=== PATIENT | male | born 1950 | race Caucasian/White ===

== ENCOUNTER 2018-06-11 10:27 | Inpatient (IN) ==
[2018-06-11] MEDS ORDERED: Iohexol 350 MG/ML 100 ML Vial (for Cath Lab) IVCONTRAST ONE (10:28)
[2018-06-11 11:24] LABS: Baso % (Auto) 0.2 % (0.0-2.0); Hematocrit 43.6 % (39.0-51.0); Hemoglobin 14.6 gm/dL (13.0-17.0); Lymph # (Auto) 0.8 th/mm3 (1.0-4.8); Lymph % (Auto) 6.3 % (9.0-44.0); Mean Corpuscular HGB Conc 33.4 % (32.0-36.0); Mean Corpuscular Volume 92.7 fL (80.0-100.0); Mean Platelet Volume 8.8 fL (7.0-11.0); Mono # (Auto) 0.3 th/mm3 (0.0-0.9); Mono % (Auto) 2.6 % (0.0-8.0); Neut % (Auto) 90.9 % (16.0-70.0); Platelet Count 286 th/mm3 (150-450); Red Blood Count 4.71 mil/mm3 (4.50-5.90); Red Cell Distribution Width 14.3 % (11.6-17.2); White Blood Count 12.1 th/mm3 (4.0-11.0)
[2018-06-11 11:35] LABS: Calcium 8.7 mg/dL (8.5-10.1); Carbon Dioxide 25.8 meq/L (21.0-32.0); Potassium 4.5 meq/L (3.5-5.1)
[2018-06-11 11:36] LABS: Activated Partial Thrombo Time 31.6 sec (23.4-31.7); INR 1.3 Ratio
[2018-06-11] MEDS ORDERED: Heparin/NS PF Inj 1,000 ML ONE (12:45)
[2018-06-11] MEDS ORDERED: fentaNYL Citrate Inj 100 MCG/2 ML Ampul ONE (12:45)
[2018-06-11] MEDS ORDERED: Lidocaine PF 1% Inj 30 ML Vial ONE (12:45)
[2018-06-11] MEDS: Sod Chloride 0.9% Inj 1,000 ML IV.SIG SCH (13:20)
--- NOTE | 2018-06-11 14:06 | CATHPROC ---
Copytele HIS Report Study Information Study Number Admission Scheduled Start Study Start [id number] Jun 11 2018 10:27AM 06/11/2018 Jun 11 2018 12:18PM [facility] Cardiac Catheterization Admit Source Facility Department Other [facility] - Sales Engineer Physician and Clinical Staff Initial MD Beckford, Elena Flight Controls Engineer Hermelinda Jarquin,BHAVIN Other cathlab, cathlab Recorder Debbie Mancia ,RT(R) Aster Lainez,RT(R) (BS) Procedures Performed Procedure Location (Site) Vessel Name Angiogram LV LV Ventricle Coronary Angiograms LCA Left Coronary Coronary Angiograms RCA Right Coronary L Heart Cath Equipment Time Diabetologist Description Size Mfg Part Number Used/Scraped TRANSDUCER, TRUWAVE [id number] 12:19 [employer] [address] * Used W/STOCKCOCK *[id number] INTRODUCER SET, 12:19 [employer] FR 5 [id number] *[id number] Used MICROPUNCTURE STIFF [phone] *[id number] 538-420 *[id number] [id number] *[id number] 12:19 [employer] BLANKET,WARM AIR CCL * Used *[id number] 12:19 [employer] PACK, CCL CUSTOM * Used *[id number] 12:19 [employer] PACER PEN, SKIN DUAL W/ RULER * Used *[id number] 12:19 [employer] WIRE, 3MMJ .035 180CM 180CM Used *[id number] PROBE COVER, STERILE [id number] 12:19 [employer] MEDICAL * Used ULTRASOUND W/ GEL *[id number] 12:19 NAMIC MANIFOLD, 4 PORT * Used *[id number] 12:19 [employer] OMNIPAQUE, 350 MG, 150ML 150ML [id number] Used 13:00 [employer] OMNIPAQUE, 350 MG, 50ML 50ML [id number] Used [id number] 12:19 [employer] SHEATH, FR4 TERUMO (10CM) FR 4 Used *[id number] History: Current Medications Medication Dosage/Unit Route Frequency Last Date/Time Taken Statins (any) Beta Bee ASA Coumadin History: Allergies Allergy Reaction Iodinated Contrast- Oral and IV Shortness of Breath Dye History: Risk Factors Family History of Hypertension Dyslipidemia Previous PR Previous Heart Failure Premature CAD Yes Yes Yes No No Prior Valve Prior PCI Prior CABG Surgery No No No Cerebrovascular Peripheral Artery Chronic Lung On Dialysis Diabetes Disease Disease Disease No No No Yes No History: Other Current Smoker No Labs Hgb (g/dl) Hct (%) WBC (l/cumm) Platelets (thousands) 11.60-17.00 35.00-51.00 4.00-11.00 150.00-450.00 14.6 43.6 12.1 286 Glucose (mg/dl) BUN (mg/dl) Creatinine (mg/dl) BUN:Creatinine (1:x) 74.00-106.00 7.00-18.00 0.50-1.30 10.00-20.00 131 15 1.0 15 Na (meq/l) K (meq/l) 136.00-145.00 3.50-5.10 142 4.5 INR (PTT:PT) 0.90-1.10 1.3 CPK-MB (ng/ML) 0.50-3.60 Not Drawn Medication Medication Total Dose (Bolus/Oral) Medication Total Dosage/Unit 1% XYLOCAINE 15 mL FENTANYL 100 mcg VERSED 2 mg Medications (Bolus/Oral) Medication Time Given Dosage/Unit Administered By Reason VERSED 06/11/2018 1:25:20 PM 2 mg Hermelinda Jarquin 2 mg VERSED given in lab by Hermelinda Jarquin, BHAVIN via Peripheral IV. Ordered by Elena Beckford. FENTANYL 06/11/2018 1:26:34 PM 50 mcg Hermelinda Jarquin 50 mcg FENTANYL given in lab by Hermelinda Jarquin, BHAVIN in Right Forearm via Peripheral IV. Ordered by Elena Bell. 1% XYLOCAINE 06/11/2018 1:28:36 PM 15 mL Elena Beckford 15 mL 1% XYLOCAINE given in lab by Elena Beckford in Right Groin via Subcutaneous. Ordered by Elena Zapata. FENTANYL 06/11/2018 1:31:04 PM 50 mcg Hermelinda Jarquin 50 mcg FENTANYL given in lab by Hermelinda Jarquin, BHAVIN in Left Forearm via Peripheral IV. Ordered by Elena Cross. Medication (Drip) Medication Time Given Dosage/Unit Concentration/Unit Diluent (ml) Solution 06/11/2018 12:37:55 IV Solutions 50 mL (IV) NaCl .9 PM Patient arrived on IV Solutions via Peripheral IV. Pump/Drip Flow using NaCl .9. Initial Case Assessment Cardiovascular HR NIBP Chest Pain 82 134/82 0 Edema Present Skin color Skin None Normal Warm Dry Circulatory - Right Pulses Dorsalis Pedis Femoral 3 3 Scale (0,1,2,3,4,d) Circulatory - Left Pulses Dorsalis Pedis Femoral 3 3 Scale (0,1,2,3,4,d) Neurological State Oriented to time-place- Alert Moves all extremities person Respiration - General Respiration Rate SpO2 (%) (B/min) 16 97 Final Case Assessment Cardiovascular HR NIBP Chest Pain 100 127/69 0 Edema Present Skin color Skin None Normal Warm Dry Circulatory - Right Pulses Dorsalis Pedis Femoral 3 3 Scale (0,1,2,3,4,d) Circulatory - Left Pulses Dorsalis Pedis Femoral 3 3 Scale (0,1,2,3,4,d) Neurological State Oriented to time-place- Alert Moves all extremities person Respiration - General Respiration Rate SpO2 (%) (B/min) 16 97 Chronological Log Time Study Chronological Log 12:36:33 Patient arrived via Bed. Premedicated for contrast allergy. 12:36:34 Patient Name, D.O.B, / Armband Verified By R.N. 12:37:41 Consent signed by the physician and the patient and verified by the Sales Engineer staff. 12:37:45 Pre-op and post- op instructions given; patient acknowledges understanding of instructions. 12:37:47 Verbal Stimulation=2 Physical Stimulation=2 Airway=2 Respiration=2 TOTAL=8. (0=absent, 1=li mited, 2=present) 12:37:49 Patient has been NPO for More than 6Hrs. 12:37:50 Skin Breakdown- none per patient 12:37:52 Patient Warmer Placed on the Table. 12:37:53 Casie Prominences Protected 12:37:54 A # 20 IV was noted in the Forearm (left). Grade = 0 12:37:55 Patient arrived on IV Solutions via Peripheral IV. Pump/Drip Flow using NaCl .9. 12:37:55 History and physical on the chart or being dictated. Assessment: Initial Case, HR=82 BPM, QPOR=937/82 mmhg, Chest Pain=0, Edema=None, Color=Normal, Skin = Warm, Dry Right Pulses: Joni Ped=3, Femoral=3 12:37:57 Left Pulses: Joni Ped=3, Femoral=3 Neurological: State=Alert, Ox3, ARVIZU Respiration: Resp=16 B/min, SpO2=97 % Vitals capture started with the following parameters, Patient=Adult, Interval=5 min, Initial Pr rkhyav=003 mmHg, 12:42:29 Deflation Rate=5 mmHg, Cuff placed on Left Arm 12:42:44 Reference ECG taken 12:43:10 HR=82 bpm, PPSW=526/82 mmhg, SpO2=98.0 %, Resp=18 B/min, Pain=0, Libby=10, Shepherd=2 12:48:03 HR=82 bpm, DHOF=648/84 mmhg, SpO2=98.0 %, Resp=15 B/min, Pain=0, Libby=10, Shepherd=2 12:52:13 Bilateral groins prepped with 2% chlorhexidine, and draped after a 3 minute waiting time. 12:52:42 MD paged 12:53:04 HR=82 bpm, XOHK=158/83 mmhg, SpO2=98.0 %, Resp=9 B/min, Pain=0, Libby=10, Shepherd=2 12:57:06 Pressure channel 1 zeroed. 12:58:03 HR=83 bpm, BVCW=200/79 mmhg, SpO2=97.0 %, Resp=9 B/min 13:03:02 HR=82 bpm, GLAW=775/81 mmhg, SpO2=97.0 %, Resp=9 B/min, Pain=0, Libby=10, Shepherd=2 13:08:03 HR=81 bpm, UACN=263/78 mmhg, SpO2=97.0 %, Resp=8 B/min, Pain=0, Libby=10, Shepherd=2 13:13:06 HR=83 bpm, AOGK=079/73 mmhg, SpO2=96.0 %, Resp=1 B/min, Pain=0, Libby=10, Shepherd=2 13:14:51 MD responded 13:18:05 HR=84 bpm, ILOQ=395/79 mmhg, SpO2=97.0 %, Resp=0 B/min, Pain=0, Libby=10, Shepherd=2 13::38 MD arrived. 13:23:04 HR=86 bpm, TLUB=608/82 mmhg, SpO2=96.0 %, Resp=18 B/min, Pain=0, Libby=10, Shepherd=2 13:25:20 2 mg VERSED given in lab by Hermelinda Jarquin, BHAVIN via Peripheral IV. Ordered by Caridad Beckford. 50 mcg FENTANYL given in lab by Hermelinda Jarquin, BHAVIN in Right Forearm via Peripheral IV. Ordered by Analy, 13::34 Humkalin. Time Out. Correct patient, correct procedure, correct physician, labs, allergies, and equipment verified with solar lab technician ::38 team present. Fire risk assesment completed (see hard stop sheet for coding). Time Out Conc urred by MD and individual staff in procedure. 13:28:07 HR=86 bpm, FUJF=971/73 mmhg, SpO2=93.0 %, Resp=4 B/min, Pain=0, Libby=10, Shepherd=2 13::34 Case Start 15 mL 1% XYLOCAINE given in lab by Elena Beckford in Right Groin via Subcutaneous. Ordered by Analy, 13:28:36 Humayun. 13:30:19 Access site was Right Femoral Artery. A INTRODUCER SET, MICROPUNCTURE STIFF FR 5 was advanced into the Fem Art (right) using the Perc utaneous :30:29 technique. A SHEATH, FR4 TERUMO (10CM) FR 4 was exchanged in the Fem Art (right). This was necessary in or richie to :34 accomodate a larger catheter. 50 mcg FENTANYL given in lab by Hermelinda Jarquin, BHAVIN in Left Forearm via Peripheral IV. Ordered by Analy, 13:31:04 Humsuzetteun. A JL 4.0 INFINITI CATHETER FR 4 was advanced over a wire. OMNIPAQUE, 350 MG, 150ML 150ML was us ed for ::34 injections. 13:32:54 The LCA was injected and visualized at various angles. OMNIPAQUE, 350 MG, 150ML 150ML used . Recorded Pressure: Ao, HR=75, Condition=Condition 1 13:33:03 (Aorta) Ao 109/69/88 13:33:04 HR=86 bpm, XTPF=088/78 mmhg, SpO2=96.0 %, Resp=13 B/min, Pain=0, Libby=10, Shepherd=2 13:38:05 HR=91 bpm, SEAK=433/75 mmhg, SpO2=93.0 %, Resp=17 B/min, Pain=0, Libby=10, Shepherd=2 After removing the current catheter a 3DRC INFINITI CATHETER FR 4 was advanced over a WIRE, 3MM J .035 180CM 13:38:09 180CM. 13:39:48 The RCA was injected and visualized at various angles. OMNIPAQUE, 350 MG, 150ML 150ML used . 13:40:56 Catheter was removed A PIGTAIL ANG. INFINITI CATHETER FR 4 was advanced over a wire. OMNIPAQUE, 350 MG, 150ML 150ML was used 13:41:05 for injections. 13:43:06 HR=78 bpm, VDYY=724/69 mmhg, SpO2=94.0 %, Resp=16 B/min 13:43:29 The LV was injected at 8 cc/sec for a total of 32. OMNIPAQUE, 350 MG, 150ML 150ML used. Recorded Pressure: LV, IR=214, Condition=Condition 1 13:43:55 (Left Ventricle) LV 110/8/19 Recorded Pressure: LV, Ao, UH=684, Condition=Condition 1 13:44:00 (Left Ventricle) LV 108/7/18, (Aorta) Ao 107/59/84 13:44:20 Catheter was removed 13:44:32 Case End (Physician broke scrub) Assessment: Final Case, VE=555 BPM, TMRT=574/69 mmhg, Chest Pain=0, Edema=None, Color=Normal, Skin = Warm, Dry Right Pulses: Joni Ped=3, Femoral=3 13:44:41 Left Pulses: Joni Ped=3, Femoral=3 Neurological: State=Alert, Ox3, ARVIZU Respiration: Resp=16 B/min, SpO2=97 % 13:45:09 Catheter(s) removed without difficulty 13:45:14 Sheath removed; pressure applied to access site. 13:45:19 Sterile dressing applied to site 13:45:19 No case complications noted. 13:45:22 Cine recording checked. 13:45:23 Bedside Report will be given. 13:45:28 A Left Heart Cath was performed. 13:48:05 HR=86 bpm, YLKK=526/83 mmhg, SpO2=97.0 %, Resp=22 B/min, Pain=0, Libby=10, Shepherd=2 13:53:06 HR=84 bpm, ONSJ=106/81 mmhg, SpO2=95.0 %, Resp=13 B/min 13:58:05 HR=87 bpm, RQWZ=143/77 mmhg, SpO2=97.0 %, Resp=24 B/min, Pain=0, Libby=10, Shepherd=2 14:03:06 HR=87 bpm, YSBX=833/82 mmhg, Resp=12 B/min 14:04:03 Patient moved to stretcher End Study - Contrast Media Used In Study Contrast Total Opened (mL) Total Used (mL) Total Wasted (mL) Omnipaque 65 65 0 End Study - Maximum Contrast Load Max Contrast Load (mL) 369.1 End Study - Radiation Exposure Fluoro Time (minutes) 2.2 End Study - Sheaths Sheaths Pulled By Sheath Hold Time (min) Aster Jolly End Study - Patient Disposition Complications Transferred To Interventional Outcome No Regular Bed No attempt made
--- NOTE | 2018-06-11 15:27 | MP ---
cc: Elena Beckford MD, Souheil MD DATE OF OPERATION: 06/11/2018 INDICATIONS FOR PROCEDURE: Increasing angina. CONSENT: Fully informed consent was obtained for our procedure. The risks of , bleeding, myocardial infarction, perforation, aspiration, foreseen office and reviewed. The patient understood and accepted the risks. BRIEF HISTORY: This is a very pleasant 68-year-old gentleman who presents with increasing angina. He was referred for further evaluation and treatment and was recommended to have a heart catheterization. PROCEDURE: The patient was draped and prepped in usual manner. Right femoral artery was entered using a micropuncture technique via the 4-Turkish sheath. Left and right coronary catheters were used to evaluate the left and right coronaries. Pigtail catheter left ventricle. Multiple angiographic views were carried out. At the end of the catheterization procedure, all catheters and sheaths were removed. Manual pressure applied until hemostasis was achieved and the patient returned to his room in stable condition. FINDINGS: 1. Hemodynamics: The aortic pressure was 130/80_ with a mean of 84. The left ventricular systolic pressure was 108 with a LVEDP pressure of 18. There was no evidence of significant gradient on pullback across the LV outflow tract. LEFT VENTRICULOGRAM: The overall left ventricular ejection fraction was 60%. There was no evidence of significant mitral regurgitation. No thrombus. CORONARY ARTERIES: The left main had an ostial stenosis of 75%. This was an eccentric stenosis. Left main was a medium size vessel. The LAD was a large vessel, in the distal LAD there were 375-90% stenoses. The left main itself had a 75-90% stenosis. The circumflex vessel was a large vessel with a large first obtuse marginal branch that bifurcated early and bifurcated once again in the terminal branches of the main vessel. The second obtuse marginal branch was small. The circumflex artery had a long 75% stenosis proximal to the small second obtuse marginal branch. The diagonal branch was large, with evidence of diffuse 60-75% stenosis proximally. The right coronary artery was a large vessel, it was diffusely diseased throughout its length of about 25-50%. He gave a small posterior descending artery. The first posterolateral branch was large, with an ostial stenosis of about 60%. The second posterolateral branch was medium and some mild diffuse disease. CONCLUSION: Significant left main with 3-vessel coronary artery disease, normal left ventricular function. PLAN: Consider bypass surgery to the LAD, diagonal branch circumflex, OM and first posterolateral branch. MD KELLY Long/diane , 01:57 PM , 02:08 PM PEDRITO
[2018-06-11] MEDS ORDERED: Dextrose 50% in Water 50 ML Vial IV.PUSH PRN (16:08)
[2018-06-11] MEDS ORDERED: Chlorhexidine 4% Topical 120 APPLIC/120 ML Bottle TOPICAL SCH (16:15)
--- NOTE | 2018-06-11 16:25 | P.PNCV ---
- Note Subjective/Hospital Course: pt seen and evaluated, full consult to follow sts data discussed with pt RISK SCORES Procedure: Isolated CAB CALCULATE Risk of Mortality: 0.702% Renal Failure: 0.430% Permanent Stroke: 0.628% Prolonged Ventilation: 2.398% DSW Infection: 0.099% Reoperation: 1.670% Morbidity or Mortality: 4.330% Short Length of Stay: 70.080% Long Length of Stay: 1.531% Objective: Vital Signs - 24 hr 06/11/18 11:13 Temperature 97.9 F Pulse Rate 73 Respiratory Rate 18 Blood Pressure 138/80 Pulse Oximetry 99 Labs: Laboratory Results - last 12 hr 06/11/18 06/11/18 06/11/18 11:00 11:00 11:00 WBC 12.1 H RBC 4.71 Hgb 14.6 Hct 43.6 MCV 92.7 MCH 31.0 MCHC 33.4 RDW 14.3 Plt Count 286 MPV 8.8 Neut % (Auto) 90.9 H Lymph % (Auto) 6.3 L [place]ings[place] % (Auto) 2.6 Eos % (Auto) 0.0 Baso % (Auto) 0.2 Neut # (Auto) 11.0 H Lymph # (Auto) 0.8 L [place] # (Auto) 0.3 Eos # (Auto) 0.0 Baso # (Auto) 0.0 WBC Differential . Differential Comment Auto diff final PT 13.0 H INR 1.3 APTT 31.6 Sodium 142 Potassium 4.5 Chloride 109 H Carbon Dioxide 25.8 Anion Gap 7 BUN 15 Creatinine 1.00 Estimated GFR 74 L Random Glucose 131 H Calcium 8.7 Result Diagrams: 06/11/18 11:00 06/11/18 11:00
[2018-06-11] MEDS ORDERED: Sodium Chloride 0.9% Irr Bot 500 ML, ceFAZolin Inj 500 MG IRRIGATION SCH ×2 (17:00)
[2018-06-11] MEDS ORDERED: ceFAZolin 2 GM Premix Inj 2 GM/50 ML PIGGYBACK IV.SIG SCH (17:00)
[2018-06-11] MEDS ORDERED: Insulin Regular (For Infusion) 100 UNIT in Sodium Chlor 0.9% Inj 99 ML IV.CONT PRN (17:00)
[2018-06-11] MEDS ORDERED: Sodium Chlor 0.9% Inj 77.5 ML, Papaverine Inj 60 MG, Nitroglycerin Inj 100 MCG, dilTIAZ... IRRIGATION SCH ×3 (17:00)
--- NOTE | 2018-06-11 18:04 | MB ---
cc: Sammie Jefferson MD DATE: 06/11/2018 HISTORY OF PRESENT ILLNESS: A 68-year-old male patient of Dr. Vik Reeves, Dr. Beckford, who presented to his office at the beginning of the month for complaint of chest pain that he has been having off and on with exertion over the past couple of months. Scale was 4/10, more like a pressure sensation associated with some shortness of breath. Normally very active, but has been somewhat limited because of this ongoing intermittent chest discomfort. He underwent echocardiogram at Dr. Beckford's office, which showed an ejection fraction of 56%, some mild mitral regurgitation, mild tricuspid regurgitation. He underwent elective cardiac catheterization today, which showed an ejection fraction of 60%. The left main was 75% ostial lesion, the mid distal LAD 75%, the diagonal 75%. The circ was 95. The RCA 50%. We were consulted to evaluate for coronary artery bypass graft x4. 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 They were unable to find the source of the cause of the pulmonary emboli. Therefore, they kept him on continuous treatment. He has been off his Coumadin for his catheterization today. Also, history of benign prostatic hypertrophy, history of premature atrial contraction, history of a pulmonary nodule. The patient apparently had recent followup CT scan at [facility], which we can obtain. Also, history of depression. PAST SURGICAL HISTORY: Include knee surgery, tonsillectomy, hernia surgery. ALLERGIES: INCLUDE IVP DYE. HOME MEDICATIONS: Include: 1. Coumadin 5 daily. 2. Flomax. 3. Trazodone. 4. Tramadol. 5. Singulair. 6. Albuterol inhaler. 7. Advair Diskus. 8. Omeprazole. 9. Aspirin. 10. Metoprolol. 11. Atorvastatin. 12. Nitroglycerin as needed. FAMILY HISTORY: Positive for heart disease in father and his brother. Mother from diagnosis of cancer and a stroke. SOCIAL HISTORY: Nonsmoker. Rare alcohol. . REVIEW OF SYSTEMS: GENERAL: No night sweats, fever, heat and cold intolerance. SKIN: No psoriasis, itching or hives. HEENT: No blurred vision, hearing loss. RESPIRATORY: Positive for recent shortness of breath with exertion. CARDIOVASCULAR: As above in the HPI. GASTROINTESTINAL: No diarrhea or vomiting. GENITOURINARY: No burning, frequency, urgency. CENTRAL NERVOUS SYSTEM: No history of TIA, CVA or seizure disorder. ENDOCRINOLOGY: No diabetes or hypothyroidism. PHYSICAL EXAMINATION: VITAL SIGNS: Blood pressure 138/80, heart rate is 70, temperature max 97.9. GENERAL: Awake, alert, in no acute distress. HEENT: Head is normocephalic, atraumatic. Pupils equal and reactive. Oral mucosa pink, moist. NECK: Supple. No JVD. HEART: Sounds S1, S2. Regular rate and rhythm with occasional ectopy. LUNGS: Lung sounds are clear to auscultation. No wheezes, rales or rhonchi. ABDOMEN: Soft, nontender. No masses or organomegaly. EXTREMITIES: No cyanosis, clubbing, or edema. LABORATORY DATA: Shows hemoglobin 14, hematocrit of 43, white cell count of 12.1, platelet count of 286. INR 1.3. Sodium 142, potassium 4.5, BUN of 15, creatinine 1.0. IMPRESSION: Again, this 68-year-old male with left main and multivessel coronary artery disease, ejection fraction 60%. The cardiac catheterization films have been reviewed by Dr. Sammie Jefferson. Procedures, alternatives, and risks discussed with the patient. He is agreeable to proceed. We will continue to hold his Coumadin, can resume postsurgery. At this time, we will schedule him for 06/13/2018, for surgery. The patient will have complete further workup. His STS risk score is 0.7%. Dictated by Radha Wolf APRN Patient seen and examined, chart and angiograms reviewed on the 2017 and the findings discussed in detail with the patient and his family. Therapeutic options available including CABG was offered. I agree with Dr. Beckford that he will maximally benefit from bypass to his LAD, diagonal, OM and RPDA distributions. The LAD is very diffusely diseased and there is a potential that it may not be bypassable. The risks, complications including but not limited to bleeding, infection, stroke, myocardial injury and , and benefits of the surgical procedure were discussed in details and all questions answered. He understands the provided information and agrees to proceed with the planned operation. We will plan on proceeding with the surgical procedure as describe above on Wednesday. In the meantime, we will obtain carotid duplex imaging and lower extremity vein mapping. Thank you for allowing me to participate in the care of this patient. MD MADI Spaulding/jose , 04:31 PM , 04:40 PM PEDRITO
[2018-06-11 19:08] LABS: Bilirubin,Urine Negative (Negative); Clarity,Urine Clear (Clear); Color,Urine Yellow (Yellw/Straw); Glucose,Urine (UA) 50 mg/dL (Negative); Leukocyte Esterase,Urine Negative (Negative); Mucus,Urine Few /lpf (Occasional); Nitrite,Urine Negative (Negative)
--- NOTE | 2018-06-11 21:20 | XR ---
EXAM DATE: 06/11/2018 9:08 PM EST AGE/SEX: 68 years / Male INDICATIONS: Evaluate for pneumonia, pneumothorax, or communicable disease. Pre op cardiac surgery. CLINICAL DATA: This is the patient's initial encounter. Patient reports that signs and symptoms have been present for 1 day and indicates a pain score of 0/10. MEDICAL/SURGICAL HISTORY: None. None. COMPARISON: POI, XR CHEST PA AND LAT, 04/25/2018. . FINDINGS: PA and lateral views of the chest demonstrate the lungs to be symmetrically aerated without evidence of mass, infiltrate or effusion. The cardiomediastinal contours are unremarkable. Osseous structures are intact. CONCLUSION: Negative for acute process Electronically signed by: Garfield Muse MD 06/11/2018 9:19 PM EST
--- NOTE | 2018-06-11 22:08 | US ---
EXAM DATE: 06/11/2018 9:57 PM EST AGE/SEX: 68 years / Male INDICATIONS: Preop cardiac surgery. CLINICAL DATA: This is the patient's initial encounter. Patient reports that signs and symptoms have been present for 1 day and indicates a pain score of 0/10. MEDICAL/SURGICAL HISTORY: . BPH. Chest pressure. Hiatal hernia. Premature atrial contraction. P ulmonary nodule. Pulmonary embolism. . Cardiac cath. COMPARISON: No prior exams available for comparison. VELOCITY PARAMETERS: ICA/CCA Ratio: Right 0.8 , Left 0.9 ICA: Right 85 cm/sec, Left 84 cm/sec CCA: Right 106 cm/sec, Left 95 cm/sec ECA: Right 98 cm/sec, Left 90 cm/sec Vertebral: Right 70 cm/sec antegrade, Left 58 cm/sec antegrade FINDINGS: Right Carotid: No significant plaque is visualized.The waveforms are within normal limits. Left Carotid: No significant plaque is visualized. The waveforms are within normal limits. Other: None. CONCLUSION: Negative for hemodynamically significant stenosis Electronically signed by: Garfield Muse MD 06/11/2018 10:07 PM EST
[2018-06-12 06:06] LABS: INR 1.2 Ratio
[2018-06-12 06:16] LABS: Albumin 3.3 g/dL (3.4-5.0); Anion Gap 4 meq/L (5-15); Aspartate Aminotransferase 15 U/L (15-37); Blood Urea Nitrogen 17 mg/dL (7-18); Calcium 8.5 mg/dL (8.5-10.1); Carbon Dioxide 28.6 meq/L (21.0-32.0); Chloride 107 meq/L (98-107); Glucose,Random 103 mg/dL (74-106); Potassium 3.9 meq/L (3.5-5.1); Sodium 140 meq/L (136-145)
[2018-06-12 06:18] LABS: Alanine Aminotransferase 31 U/L (12-78); Alkaline Phosphatase 87 U/L (45-117); Glomerular Filtration Rate 79 mL/min (>89); Total Protein 6.3 g/dL (6.4-8.2)
--- NOTE | 2018-06-12 06:35 | ECG ---
Date Performed: 06/11/2018 Time Performed: 10:48:34 PTAGE: 68 years EKG: Sinus rhythm . Leftward axis Inferior T wave changes are nonspecific Borderline ECG NO PREVIOUS TRACING DOCTOR: Anuj Roldan Interpretating Date/Time 06/12/2018 06:33:54
--- NOTE | 2018-06-12 08:54 | US ---
EXAM DATE: 06/12/2018 8:49 AM EST AGE/SEX: 68 years / Male INDICATIONS: Preop cardiac surgery. CLINICAL DATA: This is the patient's initial encounter. Patient reports that signs and symptoms have been present for 1 day and indicates a pain score of 0/10. MEDICAL/SURGICAL HISTORY: . BPH. Chest pressure. Hiatal hernia. Premature atrial contraction. P ulmonary nodule. Pulmonary embolism. . Cardiac cath. COMPARISON: No prior exams available for comparison. TECHNIQUE: Venous ultrasound of both lower extremities was performed from the inguinal ligament to t he proximal calf. Real-time, color Doppler and spectral tracing, compression and augmentation techni ques were used. FINDINGS: Right Leg: Normal compression of the deep venous system from the inguinal region to the proximal josie f. No echogenic clot is seen. Normal response of the venous system to augmentation and respiration. Left Leg: Normal compression of the deep venous system from the inguinal region to the proximal calf . No echogenic clot is seen. Normal response of the venous system to augmentation and respiration. Other: None. CONCLUSION: The study is negative for bilateral lower extremity deep venous thrombosis. Electronically signed by: Thomas Oconnell MD 06/12/2018 8:53 AM EST
--- NOTE | 2018-06-12 08:56 | US ---
EXAM DATE: 06/12/2018 8:53 AM EST AGE/SEX: 68 years / Male INDICATIONS: Preop cardiac surgery. CLINICAL DATA: This is the patient's initial encounter. Patient reports that signs and symptoms have been present for 1 day and indicates a pain score of 0/10. MEDICAL/SURGICAL HISTORY: None. BPH. Chest pressure. Hiatal hernia. Premature atrial contractio n. Pulmonary nodule. Pulmonary embolism. . Cardiac cath. COMPARISON: . MEASUREMENTS: RIGHT THIGH: Proximal:__5 mm Mid:__ 3 mm Distal:__4 mm LEFT THIGH: Proximal:__7 mm Mid:__3 mm Distal:__4 mm RIGHT CALF: Proximal:__3 mm Mid:__3 mm Distal:__3 mm LEFT CALF: Proximal:__4 mm Mid:__4 mm Distal:__3 mm FINDINGS: The venous system of the lower extremities are patent by color Doppler imaging. Measurements of the leg veins (in mm) are listed above. CONCLUSION: Patent greater saphenous veins bilaterally as above. Electronically signed by: Thomas Oconnell MD 06/12/2018 8:54 AM EST
[2018-06-12 11:02] LABS: Hemoglobin A1c 5.8 % (4.3-6.0)
[2018-06-12] MEDS: Sod Chloride 0.9% Inj 1,000 ML IV.SIG SCH (12:18)
[2018-06-12] MEDS: Acetaminophen 325 MG Tablet PO PRN ×2 (14:13→20:49)
--- NOTE | 2018-06-12 15:23 | P.PNCV ---
- Note Subjective/Hospital Course: A 68-year-old male patient of Dr. Vik Reeves, Dr. Beckford, who presented to his office at the beginning of the month for complaint of chest pain that he has been having off and on with exertion over the past couple of months. Scale was 4/10, more like a pressure sensation associated with some shortness of breath. Normally very active, but has been somewhat limited because of this ongoing intermittent chest discomfort. He underwent echocardiogram at Dr. Beckford's office, which showed an ejection fraction of 56%, some mild mitral regurgitation, mild tricuspid regurgitation. He underwent elective cardiac catheterization today, which showed an ejection fraction of 60%. The left main was 75% ostial lesion, the mid distal LAD 75%, the diagonal 75%. The circ was 95. The RCA 50%. We were consulted to evaluate for coronary artery bypass graft x4. 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 They were unable to find the source of the cause of the pulmonary emboli. Therefore, they kept him on continuous treatment. He has been off his Coumadin for his catheterization today. Also, history of benign prostatic hypertrophy, history of premature atrial contraction, history of a pulmonary nodule. The patient apparently had recent followup CT scan at [facility], which we can obtain. Also, history of depression. 06/12 no chest pain last pm carotid us : good Fev1 2.30 stable for surgery in am Objective: Vital Signs - 24 hr 06/11/18 17:28 06/11/18 17:30 06/11/18 18:02 Temperature 98.2 F Pulse Rate 95 H 88 84 Respiratory Rate 20 Blood Pressure 126/73 Pulse Oximetry 95 06/11/18 19:00 06/11/18 20:00 06/11/18 21:00 Temperature 97.3 F L Pulse Rate 96 H 68 84 Respiratory Rate 17 Blood Pressure 144/72 H Pulse Oximetry 99 06/11/18 22:00 06/11/18 23:00 06/12/18 00:00 Temperature 98 F Pulse Rate 85 97 H 84 Respiratory Rate 17 Blood Pressure 127/68 Pulse Oximetry 97 06/12/18 01:00 06/12/18 02:00 06/12/18 03:00 Temperature Pulse Rate 84 83 81 Respiratory Rate Blood Pressure Pulse Oximetry 06/12/18 04:00 06/12/18 05:00 06/12/18 06:00 Temperature 98.3 F Pulse Rate 76 85 89 Respiratory Rate 18 Blood Pressure 132/79 Pulse Oximetry 97 06/12/18 07:38 06/12/18 08:00 06/12/18 09:10 Temperature 98.3 F Pulse Rate 80 79 84 Respiratory Rate 16 Blood Pressure 132/77 Pulse Oximetry 06/12/18 10:00 06/12/18 11:38 06/12/18 12:12 Temperature 98.5 F Pulse Rate 83 80 92 H Respiratory Rate 16 Blood Pressure 130/74 Pulse Oximetry 06/12/18 13:01 06/12/18 14:29 Temperature Pulse Rate 79 83 Respiratory Rate Blood Pressure Pulse Oximetry GENERAL: SKIN: Warm and dry. HEAD: Normocephalic. EYES: No scleral icterus. No injection or drainage. NECK: Supple, trachea midline. No JVD or lymphadenopathy. CARDIOVASCULAR: Regular rate and rhythm without murmurs, gallops, or rubs. RESPIRATORY: Breath sounds equal bilaterally. No accessory muscle use. GASTROINTESTINAL: Abdomen soft, non-tender, nondistended. MUSCULOSKELETAL: No cyanosis, or edema. BACK: Nontender without obvious deformity. No CVA tenderness. Labs: Laboratory Results - last 12 hr 06/12/18 06/12/18 06/12/18 05:35 05:35 05:35 PT 12.0 H INR 1.2 Sodium 140 Potassium 3.9 Chloride 107 Carbon Dioxide 28.6 Anion Gap 4 L BUN 17 Creatinine 0.95 Estimated GFR 79 L Random Glucose 103 Calcium 8.5 Total Bilirubin 0.5 AST 15 ALT 31 Alkaline Phosphatase 87 Total Protein 6.3 L Albumin 3.3 L Blood Type A Negative Antibody Screen Negative MTS Gel Crossmatch See Detail Bld Prod Order Comment Result Diagrams: 06/11/18 11:00 06/12/18 05:35
[2018-06-12] MEDS ORDERED: Temazepam 15 MG Capsule PO PRN ×2 (21:00→22:34)
[2018-06-12] MEDS ORDERED: traZODone 100 MG Tablet PO ONE ×2 (21:00→22:45)
[2018-06-13] MEDS: fentaNYL Citrate Inj 100 MCG/2 ML Ampul IV.PUSH PRN ×3 (03:00→20:39)
[2018-06-13] MEDS: Metoprolol Tartrate 25 MG Tablet PO SCH (05:19)
[2018-06-13] MEDS ORDERED: Chlorhexidine Gluconate 2% 1 Pack (2 Cloths) TOPICAL ONE (05:38)
[2018-06-13] MEDS ORDERED: Metoprolol Tartrate 25 MG Tablet PO ONE (05:38)
[2018-06-13] MEDS ORDERED: Sodium Chlor 0.9% Inj 500 ML IV.SIG SCH (06:00)
[2018-06-13] MEDS ORDERED: Heparin - SQ 10,000 UNITS/ML Vial ONE ×2 (06:15)
[2018-06-13] MEDS ORDERED: Potassium Chlor 20 mEq Premix 20 MEQ/100 ML PIGGYBACK IV.SIG ONE ×2 (09:20→13:03)
[2018-06-13] MEDS ORDERED: ceFAZolin Inj 500 MG Vial ONE (11:18)
[2018-06-13] MEDS ORDERED: Protamine Sulfate Inj 50 MG/5 ML Vial ONE (11:45)
[2018-06-13] MEDS ORDERED: Morphine Sulfate Inj 2 MG/ML Vial IV.PUSH PRN (13:00)
[2018-06-13] MEDS ORDERED: Acetaminophen 650 MG Supp RECTAL PRN (13:00)
[2018-06-13] MEDS ORDERED: Albumin Human 5% Inj 250 ML IV.SIG PRN (13:00)
[2018-06-13] MEDS ORDERED: Dextrose 50% in Water 50 ML Vial IV.PUSH PRN (13:00)
[2018-06-13] MEDS ORDERED: Dexmedetomidine Inj 200 MCG in Sodium Chlor 0.9% Inj 48 ML IV.CONT PRN (13:00)
[2018-06-13] MEDS ORDERED: Calcium Chloride Inj 1 GM in Sodium Chlor 0.9% Inj 100 ML IV.SIG PRN (13:00)
[2018-06-13] MEDS ORDERED: Calcium Chloride Inj 1 GM/10 ML Syringe IV.PUSH PRN (13:00)
[2018-06-13] MEDS ORDERED: RESP: Racemic Epinephrine 2.25% 0.5 ML Neb NEB PRN (13:00)
[2018-06-13] MEDS ORDERED: hydrALAZINE HCl Inj 20 MG/ML Vial IV.PUSH PRN (13:00)
[2018-06-13] MEDS ORDERED: Clevidipine Inj 25 MG/50 ML VIAL IV.CONT PRN (13:00)
[2018-06-13] MEDS ORDERED: Potassium Chlor 20 mEq Premix 20 MEQ/100 ML PIGGYBACK IV.SIG PRN ×3 (13:00)
[2018-06-13] MEDS ORDERED: Post-op Orders (for Pharmacy) OTHER STA (13:00)
[2018-06-13] MEDS ORDERED: Phenylephrine Inj 40 MG in Sodium Chlor 0.9% Inj 496 ML IV.CONT PRN (13:00)
[2018-06-13] MEDS ORDERED: Insulin Regular (For Infusion) 100 UNIT in Sodium Chlor 0.9% Inj 99 ML IV.CONT PRN (13:00)
[2018-06-13] MEDS ORDERED: ceFAZolin Inj 2,000 MG in Sodium Chlor 0.9% Inj 80 ML IV.SIG SCH (13:00)
[2018-06-13] MEDS ORDERED: Magnesium Sulfate Inj 2 GM in Sodium Chlor 0.9% Inj 96 ML IV.SIG PRN ×4 (13:00)
--- NOTE | 2018-06-13 13:09 | P.OP ---
Date of procedure: 06/13/18 Anesthesia: BAUDILIOA Surgeon: Sammie Jefferson MD Operation and Findings: PREPROCEDURE DIAGNOSES 1. Severe Multi Vessel Coronary Artery Disease. 2. Left main coronary artery disease POSTPROCEDURE DIAGNOSES Same SURGICAL PROCEDURE 1. Urgent Off-pump Coronary Artery Bypass Grafting x 4 with Left Internal Mammary Artery (ALCANTAR) to Left Anterior Descending (LAD), reverse saphenous vein graft to obtuse Marginal branch of the left Circumflex artery, reverse saphenous vein graft to the posterior Descending branch of the right Coronary artery, reverse saphenous vein graft to the diagonal 1 branch of the LAD 2. Bilateral leg Endoscopic Vein [place] 3. Intraoperative Vein Mapping. SURGEON Sammie Jefferson MD OFFICE MAIL CLERK KACY Hernandez ANESTHESIA General endotracheal PROJECT ADMINISTRATIVE ASSISTANT JOSEPH Ding MD PREPARATION ChloraPrep. COUNTS Needle, sponge, and instrument counts were correct. DRAINS Two 32-Albanian mediastinal tubes. COMPLICATIONS None. INDICATIONS FOR PROCEDURE The patient is a 68-year-old presenting with chest pain. Patient was noted to have left main with multi vessel coronary artery disease. The patient is being brought to the operating room for surgical revascularization therapy. PROCEDURE Patient was brought to the operating room and placed supine on the OR table. 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 The patient was then prepped and draped in standard sterile fashion. Next, 2500 units of intravenous heparin was given. The bilateral greater saphenous vein was harvested endoscopically. This appeared to be very large varicose-caliber conduit. Simultaneously, a median sternotomy was performed and the left internal mammary artery dissected free off the posterior sternal table. The patient was systemically heparinized and anticoagulation monitored by serial ACT measurements. The internal mammary artery had excellent pulsatile flow in it and was a good-caliber conduit. The pericardium was then divided in the midline, the cradle created and targets analyzed. At this point, all anastomoses were performed in a beating-heart fashion using the [employer] MD stabilizing system. The left internal mammary artery was anastomosed to the mid LAD (2 mm) in an end-to-side fashion using 7-0 Prolene. Segment of saphenous vein graft was then anastomosed to the OM1 (2 mm) in an end-to-side fashion using 7-0 Prolene. The next segment was anastomosed to the diagonal 1 branch (1.75 mm) of the LAD using a running 6-0 Prolene. The final segment was anastomosed to the RPDA (1.5 mm) in an end-to-side fashion using 7-0 Prolene. The proximal anastomoses were then constructed to the ascending aorta in a running manner using 6-0 Prolene. All anastomotic sites were inspected and appeared to be hemostatic and patent. Protamine solution was given. Strict hemostasis was assured. The closure was undertaken. 2 chest tubes were placed. The pericardium was reapproximated in the midline. The sternum was approximated using sternal wires. The muscular and fascial layer were then closed in 3 layers. The endoscopic vein harvest site was closed in 2 layers. The patient tolerated the procedure well and was transferred to CVICU in stable condition.
[2018-06-13] MEDS ORDERED: fentaNYL Citrate Inj 250 MCG/5 ML Ampul ONE (13:56)
--- NOTE | 2018-06-13 14:36 | XR ---
EXAM DATE: 06/13/2018 2:33 PM EST AGE/SEX: 68 years / Male INDICATIONS: Post op cabg. CLINICAL DATA: This is the patient's initial encounter. Patient reports that signs and symptoms have been present for 1 day and indicates a pain score of Nonresponsive. MEDICAL/SURGICAL HISTORY: . BPH,Hiatal hernia, premature atrial contraction, pulmonary nodule, pulmonary embolism . cardiac cath. COMPARISON: [facility], CHEST 2V PA&LAT, 06/11/2018. . FINDINGS: The endotracheal tube and right jugular line are in satisfactory position. There are [address] on the left. There is no pneumothorax. The patient is post median sternotomy. There are mild a telectatic changes in the left lung base. The osseous structures are intact. CONCLUSION: Support equipment in good position. Stable postoperative chest. Electronically signed by: Noel Muse MD 06/13/2018 2:35 PM EST
[2018-06-13] MEDS: Sod Chloride 0.9% Inj 1,000 ML IV.SIG SCH (16:09)
[2018-06-13] MEDS: Ketorolac Inj 30 MG/ML (IVP) Vial IV.PUSH PRN (16:33)
[2018-06-13] MEDS: Metoprolol Inj 5 MG/5 ML Vial IV.PUSH PRN (18:12)
[2018-06-13] MEDS: Amiodarone 200 MG Tablet PO SCH (20:39)
[2018-06-13] MEDS: traZODone 100 MG Tablet PO SCH ×2 (20:39)
[2018-06-13] MEDS: ceFAZolin 2 GM Premix Inj 2 GM/50 ML PIGGYBACK IV.SIG SCH (20:41)
[2018-06-14] MEDS: Metoprolol Inj 5 MG/5 ML Vial IV.PUSH PRN (01:07)
[2018-06-14] MEDS: ceFAZolin 2 GM Premix Inj 2 GM/50 ML PIGGYBACK IV.SIG SCH ×3 (04:10→20:42)
[2018-06-14 04:39] LABS: Hematocrit 34.4 % (39.0-51.0); Hemoglobin 11.7 gm/dL (13.0-17.0); Mean Corpuscular Hemoglobin 30.6 pg (27.0-34.0); Mean Corpuscular Volume 89.9 fL (80.0-100.0); Mean Platelet Volume 8.8 fL (7.0-11.0); Platelet Count 212 th/mm3 (150-450); Red Blood Count 3.82 mil/mm3 (4.50-5.90); Red Cell Distribution Width 14.4 % (11.6-17.2)
[2018-06-14 04:54] LABS: Anion Gap 7 meq/L (5-15); Blood Urea Nitrogen 16 mg/dL (7-18); Calcium 7.6 mg/dL (8.5-10.1); Carbon Dioxide 22.8 meq/L (21.0-32.0); Chloride 106 meq/L (98-107); Glomerular Filtration Rate Greater Than 89 mL/min (>89); Glucose,Random 134 mg/dL (74-106); Potassium 4.4 meq/L (3.5-5.1); Sodium 136 meq/L (136-145)
--- NOTE | 2018-06-14 05:30 | XR ---
EXAM DATE: 06/14/2018 4:37 AM EST AGE/SEX: 68 years / Male INDICATIONS: Shortness of breath, possible pneumothorax. CLINICAL DATA: This is the patient's subsequent encounter. Patient reports that signs and symptoms h ave been present for 3 days and indicates a pain score of 7/10. MEDICAL/SURGICAL HISTORY: Hiatal hernia. BPH. PE. CABG. COMPARISON: [facility], CHEST 1V SINGLE AP, 06/13/2018. . FINDINGS: Right central line in superior vena cava. Central and left chest tube without pneumothorax. Bilateral mostly basilar airspace disease, left greater than right with small left similar to June 13. CONCLUSION: Interval extubation. Remaining support apparatus unchanged. Stable airspace disease and small left ef fusion. Electronically signed by: Dayton Mondragon MD 06/14/2018 5:29 AM EST
[2018-06-14] MEDS: Ketorolac Inj 30 MG/ML (IVP) Vial IV.PUSH PRN ×2 (06:26→17:34)
[2018-06-14] MEDS: Amiodarone 200 MG Tablet PO SCH ×2 (09:00→20:43)
[2018-06-14] MEDS ORDERED: Sod Phosphate/Sod Biphosphate (Adult) Enema 133 ML Bottle RECTAL PRN (09:30)
[2018-06-14] MEDS ORDERED: Dextrose 50% in Water 50 ML Vial IV.PUSH PRN (09:30)
[2018-06-14] MEDS ORDERED: Bisacodyl 10 MG Supp RECTAL PRN (09:30)
--- NOTE | 2018-06-14 10:39 | P.DIET ---
Nutritional Evaluation Screening comments: MDC for diet education s/p CABG x 4 on 06/13 received. Patient Navigator to provide education. Consult RD if complexities with diet education arise.
[2018-06-14] MEDS: Sod Chloride 0.9% Inj 1,000 ML IV.SIG SCH (10:51)
[2018-06-14] MEDS: Metoprolol Tartrate 25 MG Tablet PO SCH ×2 (10:57→20:42)
[2018-06-14] MEDS: Insulin NovoLOG Aspart Correctional Sugar Inj SQ SCH ×4 (11:28→22:22)
--- NOTE | 2018-06-14 12:15 | ECG ---
Date Performed: 06/14/2018 Time Performed: 05:14:24 PTAGE: 68 years EKG: Sinus rhythm . Low QRS voltages in precordial leads Borderline ECG Since the PREVIOUS TRACING , no significant change noted PREVIOUS TRACIN06/11/2018 10.48 DOCTOR: Michael Corado Interpretating Date/Time 06/14/2018 12:13:18
--- NOTE | 2018-06-14 15:04 | P.PNCA ---
Subjective Interval history: Patient seen sitting up in chair, at his side. He denies any acute complaints. Recovering well. Medications and Allergies Allergies Allergy/AdvReac Type Severity Reaction Status Date / Time Iodinated Contrast- Oral and Allergy Shortness Verified 06/11/18 11:05 IV Dye of Breath Home Medications Medication Instructions Recorded Confirmed Type albuterol sulfate 2 puff INHALATION Q4H PRN 06/11/18 06/11/18 History aspirin [Aspir-81] 81 mg PO DAILY 06/11/18 06/11/18 History atorvastatin 80 mg PO DAILY 06/11/18 06/11/18 History esomeprazole magnesium 40 mg PO DAILY 06/11/18 06/11/18 History fluticasone-salmeterol [Advair 1 inh INHALATION BID 06/11/18 06/11/18 History Diskus] metoprolol tartrate 25 mg PO BID 06/11/18 06/11/18 History montelukast 10 mg PO QPM 06/11/18 06/11/18 History nitroglycerin 0.4 mg SUBLINGUAL Q5-15M PRN 06/11/18 06/11/18 History tamsulosin 0.4 mg PO DAILY 06/11/18 06/11/18 History tramadol 50 mg PO Q6H PRN 06/11/18 06/11/18 History trazodone 50 mg PO DAILY 06/11/18 06/11/18 History warfarin [Coumadin] 5 mg PO DAILY 06/11/18 06/11/18 History melatonin 10 mg PO HS PRN 06/12/18 06/12/18 History Active Medications: Active Medications Acetaminophen (Tylenol) 650 mg PO Q6H PRN PRN Reason: HEADACHE Last Admin: 06/12/18 20:49 Dose: 650 mg Hydrocodone Bitart/Acetaminophen ([place] 5/325) 1 tab PO Q3H PRN PRN Reason: PAIN SCALE 1 TO 5 Last Admin: 06/14/18 14:34 Dose: 1 tab Al Hydroxide/Mg Hydroxide (Milk Of Magnesia Liq) 30 ml PO DAILY ALEJANDRO Albuterol (Duoneb Neb (Prn)) 1 ampul NEB Q2HR NEB PRN PRN Reason: WHEEZING Albuterol (Duoneb Neb (Alejandro)) 1 ampul NEB Q6HR WHILE AWAKE NEB ALEJANDRO Stop: 06/16/18 13:59 Amiodarone HCl (Cordarone) 200 mg PO Q12HR [facility] Last Admin: 06/14/18 09:00 Dose: 200 mg Aspirin (Aspirin Chew) 81 mg PO DAILY [facility] Last Admin: 06/14/18 08:59 Dose: 81 mg Bisacodyl (Dulcolax Supp) 10 mg RECTAL PRN PRN PRN Reason: SEE LABEL COMMENTS Chlorhexidine Gluconate (Hibiclens 4% Topical) 1 applicatio TOPICAL CAPPING MACHINE OPERATOR [facility] Stop: 06/17/18 16:08 Clopidogrel Bisulfate (Plavix) 75 mg PO DAILY [facility] Last Admin: 06/14/18 09:00 Dose: 75 mg Sodium Chloride 77.5 ml/Papaverine HCl 60 mg/Nitroglycerin 100 mcg/Diltiazem HCl 100 mg 0 ml IRRIGATION CAPPING MACHINE OPERATOR [facility] Stop: 06/17/18 16:59 Last Admin: 06/13/18 09:12 Dose: 1 bag Sodium Chloride 500 ml/ (Cefazolin Sodium 500 mg) 0 ml IRRIGATION CAPPING MACHINE OPERATOR [facility] Stop: 06/17/18 16:59 Last Admin: 06/13/18 09:12 Dose: 1 irrig.soln Dextrose (D50w Vial) 50 ml IV.PUSH UNSCH PRN PRN Reason: PER HYPOGLYCEMIA PROTOCOL Dextrose (D50w Vial) 50 ml IV.PUSH UNSCH PRN PRN Reason: PER HYPOGLYCEMIA PROTOCOL Dextrose (D50w Vial) 50 ml IV.PUSH UNSCH PRN PRN Reason: PER HYPOGLYCEMIA PROTOCOL Docusate Sodium (Colace) 100 mg PO BID [facility] Glucagon (Glucagon Inj) 1 mg OTHER PRN PRN PRN Reason: For hypoglycemia Sodium Chloride (Ns Inj) 1,000 mls @ 30 mls/hr IV.SIG .Q24H [facility] Last Admin: 06/14/18 10:51 Dose: Not Given Insulin Human Regular 100 unit (/ Sodium Chloride) 100 mls @ 3 mls/hr IV.CONT TITRATE PRN; Protocol PRN Reason: See Protocol Sodium Chloride (Ns Inj) 500 mls @ 30 mls/hr IV.SIG .Q10H [facility] Last Admin: 06/13/18 09:14 Dose: Not Given Cefazolin Sodium/Dextrose (Ancef 2 Gm Premix Inj) 2 gm in 50 mls @ 100 mls/hr IV.SIG Q8H [facility] Stop: 06/15/18 04:29 Last Infusion: 11/29/18 12:15 Dose: Infused Insulin Aspart (Novolog Insulin Correctional Sugar Inj) 0 unit SQ 02,06,10,14, 18,22 [facility]; Protocol Stop: 06/15/18 09:59 Last Admin: 06/14/18 14:41 Dose: 3 unit Insulin Aspart (Novolog Insulin Correctional Sugar Inj) 0 unit SQ [facility]; Protocol Ketorolac Tromethamine (Toradol Inj) 15 mg IV.PUSH Q6H PRN PRN Reason: SEE LABEL COMMENTS Stop: 06/15/18 12:59 Last Admin: 06/14/18 06:26 Dose: 15 mg Metoprolol Tartrate (Lopressor) 12.5 mg PO CAPPING MACHINE OPERATOR [facility] Stop: 06/17/18 16:09 Last Admin: 06/13/18 05:19 Dose: 12.5 mg Metoprolol Tartrate (Lopressor) 12.5 mg PO BID [facility] Last Admin: 06/14/18 10:57 Dose: 12.5 mg Multivitamins/Minerals (Theragran-M) 1 tab PO DAILY [facility] Ondansetron HCl (Zofran Inj) 4 mg IV.PUSH Q6H PRN PRN Reason: NAUSEA OR VOMITING Last Admin: 06/14/18 05:40 Dose: 4 mg Pantoprazole Sodium (Protonix) 40 mg PO DAILY@06 [facility] Last Admin: 06/14/18 06:27 Dose: 40 mg Polyethylene Glycol (Miralax) 17 gm PO DAILY [facility] Sennosides (Senokot) 8.6 mg PO HS [facility] Sodium Biphosphate/Sodium Phosphate (Fleets Enema (Adult)) 133 ml RECTAL UNSCH PRN PRN Reason: SEE LABEL COMMENTS Sodium Chloride (Ns Flush) 2 ml IV.FLUSH BID [facility] Last Admin: 06/14/18 09:00 Dose: 2 ml Sodium Chloride (Ns Flush) 2 ml IV.FLUSH PRN PRN PRN Reason: FLUSH AFTER USING IV ACCESS Tamsulosin HCl (Flomax) 0.4 mg PO DAILY [facility] Last Admin: 06/14/18 08:59 Dose: 0.4 mg Temazepam (Restoril) 15 mg PO HS PRN PRN Reason: SLEEP Last Admin: 06/12/18 22:16 Dose: 15 mg Temazepam (Restoril) 15 mg PO HS PRN PRN Reason: SLEEP Trazodone HCl (Desyrel) 100 mg PO [facility] Last Admin: 06/13/18 20:39 Dose: Not Given Trazodone HCl (Desyrel) 200 mg PO [facility] Last Admin: 06/13/18 20:39 Dose: 200 mg Physical Exam Vital signs: Vital Signs 06/13/18 15:00 06/13/18 15:24 06/13/18 16:24 Temperature 98.1 F Pulse Rate 91 H 95 H Respiratory Rate 20 15 19 Blood Pressure 133/79 Pulse Oximetry 97 06/13/18 17:41 06/13/18 18:32 06/13/18 19:00 Temperature 98.9 F 99.5 F Pulse Rate 96 H Respiratory Rate 18 20 Blood Pressure 127/75 Pulse Oximetry 99 06/13/18 19:15 06/13/18 20:06 06/13/18 21:33 Temperature 98.6 F Pulse Rate 96 H 97 H Respiratory Rate 22 Blood Pressure Pulse Oximetry 99 06/13/18 23:00 06/14/18 03:00 06/14/18 03:56 Temperature 99.3 F 99.7 F H Pulse Rate 108 H 101 H 101 H Respiratory Rate 20 20 20 Blood Pressure 112/67 111/56 L Pulse Oximetry 98 98 06/14/18 07:00 06/14/18 07:20 06/14/18 10:24 Temperature 99.8 F H Pulse Rate 94 H 92 H Respiratory Rate 20 20 18 Blood Pressure 98/52 L Pulse Oximetry 94 L 06/14/18 10:26 06/14/18 10:51 06/14/18 10:52 Temperature 99.1 F Pulse Rate 101 H Respiratory Rate 19 20 Blood Pressure 104/65 Pulse Oximetry 96 96 06/14/18 11:24 06/14/18 12:00 Temperature 99.1 F Pulse Rate 103 H Respiratory Rate 22 18 Blood Pressure 153/68 H Pulse Oximetry 98 Intake & Output 06/13/18 06/14/18 06/14/18 18:59 06:59 18:59 Intake Total 5050 / 5050 1400 / 1400 150 / 150 Output Total 1243 / 1243 730 / 730 Balance 3807 / 3807 670 / 670 150 / 150 Weight 76 kg Intake: IV 1150 / 1150 1160 / 1160 150 / 150 Ofirmev Inj 1,000 mg In 100 ml 100 / 100 200 / 200 100 / 100 @ 400 mls/hr IV.SIG Q6H ALEJANDRO Rx# :[id number] Buminate 5% Inj 250 ML @ 250 250 / 250 mls/hr IV.SIG UNSCH PRN Rx#: [id number] Calcium Chloride Inj 1 GM In NS 110 / 110 Inj 100 ML @ 100 mls/hr IV.SIG PRN PRN Rx#:[id number] LR 1000 mL Inj 500 ML @ 500 mls 500 / 500 /hr IV.SIG .Q1H PRN Rx#: [id number] KCl 20 mEq Premix Inj 20 meq In 200 / 200 100 ml @ 0 mls/hr IV.SIG .STK- MED ONE Rx#:[id number] NS Inj 1,000 ML @ 30 mls/hr IV. 800 / 800 SIG .Q24H ALEJANDRO Rx#:[id number] Ancef 2 GM Premix Inj 2 gm In 50 / 50 100 / 100 50 / 50 50 ml @ 100 mls/hr IV.SIG Q8H [facility] Rx#:[id number] Oral 300 / 300 240 / 240 Anesthesia Amount 3100 / 3100 Cell Saver Amount 500 / 500 Output: Estimated Blood Loss 250 / 250 Urine Amount (Catheter) 825 / 825 595 / 595 Indwelling Temp Sensing 825 / 825 595 / 595 Catheter Chest Tube Drainage 168 / 168 135 / 135 Pleural/Mediastinal 168 / 168 135 / 135 - Constitutional no acute distress - Routine HEENT Exam Head: Present: normocephalic Eye: Present: EOMI, PERRL, normal accommodation ENT: Present: mucous membranes moist - Routine Neck Exam Present: supple - Routine Respiratory Exam Present: diminished air movement Comments: chest tube in place - Routine Cardiovascular Exam Present: RRR Comments: midline chest incision dressing clean, dry, intact - Routine Abdominal Exam Present: soft - Routine Extremities Exam Comments: BLE lito bandages in place - Routine Skin Exam Present: intact Comments: midline chest wound vac - Routine Neurological Exam Present: alert, oriented X3 - Detailed Neurological Exam: Coma Scale Eye Opening: Spontaneous Verbal Response: Oriented Motor Response: Obey commands [place] Coma Scale Total: 15 - Routine Psychiatric Exam Present: normal affect - Urinary Catheter Management Indwelling Temp Sensing Catheter Cath placed during this visit: yes Reason for continuing: Hourly intake/output Insertion date: 06/13/18 Insertion time: 07:30 Results 06/15/18 03:43 06/15/18 03:43 CBC 06/14/18 Range/Units 04:10 WBC 14.0 H (4.0-11.0) th/mm3 RBC 3.82 L (4.50-5.90) mil/mm3 Hgb 11.7 L (13.0-17.0) gm/dL Hct 34.4 L (39.0-51.0) % Plt Count 212 (150-450) th/mm3 Comprehensive Metabolic Panel 06/14/18 Range/Units 04:10 Sodium 136 (136-145) meq/L Potassium 4.4 (3.5-5.1) meq/L Chloride 106 (98-107) meq/L Carbon Dioxide 22.8 (21.0-32.0) meq/L BUN 16 (7-18) mg/dL Creatinine 0.81 (0.60-1.30) mg/dL Calcium 7.6 L D (8.5-10.1) mg/dL Intake and Output 06/13/18 06/14/18 06/14/18 22:59 06:59 14:59 Intake Total 1960 / 1960 740 / 740 150 / 150 Output Total 568 / 568 730 / 730 Balance 1392 / 1392 10 150 / 150 Intake: IV 1660 / 1660 500 / 500 150 / 150 Ofirmev Inj 1,000 mg In 100 ml 100 / 100 200 / 200 100 / 100 @ 400 mls/hr IV.SIG Q6H ALEJANDRO Rx# :[id number] Buminate 5% Inj 250 ML @ 250 250 / 250 mls/hr IV.SIG UNSCH PRN Rx#: [id number] Calcium Chloride Inj 1 GM In NS 110 / 110 Inj 100 ML @ 100 mls/hr IV.SIG PRN PRN Rx#:[id number] LR 1000 mL Inj 500 ML @ 500 mls 500 / 500 /hr IV.SIG .Q1H PRN Rx#: [id number] KCl 20 mEq Premix Inj 20 meq In 100 / 100 100 ml @ 0 mls/hr IV.SIG .STK- MED ONE Rx#:[id number] NS Inj 1,000 ML @ 30 mls/hr IV. 800 / 800 SIG .Q24H ALEJANDRO Rx#:[id number] Ancef 2 GM Premix Inj 2 gm In 50 / 50 50 / 50 50 / 50 50 ml @ 100 mls/hr IV.SIG Q8H ALEJANDRO Rx#:[id number] Oral 300 / 300 240 / 240 Output: Urine Amount (Catheter) 400 / 400 595 / 595 Indwelling Temp Sensing 400 / 400 595 / 595 Catheter Chest Tube Drainage 168 / 168 135 / 135 Pleural/Mediastinal 168 / 168 135 / 135 Other: Weight 76 kg - Imaging and Cardiology Imaging: Impressions Chest X-Ray 06/13/18 13:00 CONCLUSION: Support equipment in good position. Stable postoperative chest. Chest X-Ray 06/14/18 05:00 CONCLUSION: Interval extubation. Remaining support apparatus unchanged. Stable airspace disease and small left effusion. Assessment and Plan - Plan Assessment ASHD-status post CABG Plan Status post- Urgent Off-pump Coronary Artery Bypass Grafting x 4 with Left Internal Mammary Artery (ALCANTAR) to Left Anterior Descending (LAD), reverse saphenous vein graft to obtuse Marginal branch of the left Circumflex artery, reverse saphenous vein graft to the posterior Descending branch of the right Coronary artery, reverse saphenous vein graft to the diagonal 1 branch of the LAD and Bilateral leg Endoscopic Vein [place]. Will Continue on plavix and ASA. Recovering well. Patient was seen and evaluated by Dr. Beckford who participated in care management decision making. Overall doing well post CABG Code Status: Full Code Discussed Condition With: Dr. Beckford, Dr. Jefferson, Patient and
--- NOTE | 2018-06-14 18:04 | P.PNCV ---
- Note Subjective/Hospital Course: A 68-year-old male patient of Dr. Vik Reeves, Dr. Beckford, who presented to his office at the beginning of the month for complaint of chest pain that he has been having off and on with exertion over the past couple of months. Scale was 4/10, more like a pressure sensation associated with some shortness of breath. Normally very active, but has been somewhat limited because of this ongoing intermittent chest discomfort. He underwent echocardiogram at Dr. Beckford's office, which showed an ejection fraction of 56%, some mild mitral regurgitation, mild tricuspid regurgitation. He underwent elective cardiac catheterization today, which showed an ejection fraction of 60%. The left main was 75% ostial lesion, the mid distal LAD 75%, the diagonal 75%. The circ was 95. The RCA 50%. We were consulted to evaluate for coronary artery bypass graft x4. 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 They were unable to find the source of the cause of the pulmonary emboli. Therefore, they kept him on continuous treatment. He has been off his Coumadin for his catheterization today. Also, history of benign prostatic hypertrophy, history of premature atrial contraction, history of a pulmonary nodule. The patient apparently had recent followup CT scan at [facility], which we can obtain. Also, history of depression. 06/12 no chest pain last pm carotid us : good Fev1 2.30 stable for surgery in am 06/13 SURGICAL PROCEDURE 1. Urgent Off-pump Coronary Artery Bypass Grafting x 4 with Left Internal Mammary Artery (ALCANTAR) to Left Anterior Descending (LAD), reverse saphenous vein graft to obtuse Marginal branch of the left Circumflex artery, reverse saphenous vein graft to the posterior Descending branch of the right Coronary artery, reverse saphenous vein graft to the diagonal 1 branch of the LAD 2. Bilateral leg Endoscopic Vein [place] 3. Intraoperative Vein Mapping. extubated after surgery 3100cc cyrstalloid , 500cc cell saver, 250cc EBL 06/14 doing well up up in chair, transferred to stepdown on ASA, statin , BB amiodarone , plavix Objective: Vital Signs - 24 hr 06/13/18 18:32 06/13/18 19:00 06/13/18 19:15 Temperature 98.9 F 99.5 F Pulse Rate 96 H 96 H Respiratory Rate 20 Blood Pressure 127/75 Pulse Oximetry 99 06/13/18 20:06 06/13/18 21:33 06/13/18 23:00 Temperature 98.6 F 99.3 F Pulse Rate 97 H 108 H Respiratory Rate 22 20 Blood Pressure 112/67 Pulse Oximetry 99 98 06/14/18 03:00 06/14/18 03:56 06/14/18 07:00 Temperature 99.7 F H 99.8 F H Pulse Rate 101 H 101 H 94 H Respiratory Rate 20 20 20 Blood Pressure 111/56 L 98/52 L Pulse Oximetry 98 94 L 06/14/18 07:20 06/14/18 10:24 06/14/18 10:26 Temperature Pulse Rate 92 H Respiratory Rate 20 18 Blood Pressure Pulse Oximetry 96 06/14/18 10:51 06/14/18 10:52 06/14/18 11:24 Temperature 99.1 F Pulse Rate 101 H Respiratory Rate 19 20 22 Blood Pressure 104/65 Pulse Oximetry 96 06/14/18 12:00 06/14/18 13:00 06/14/18 14:00 Temperature 99.1 F Pulse Rate 93 H 92 H 86 Respiratory Rate 18 Blood Pressure 153/68 H Pulse Oximetry 98 06/14/18 15:27 Temperature Pulse Rate 85 Respiratory Rate 16 Blood Pressure Pulse Oximetry GENERAL: A&O x 3 SKIN: Warm and dry. prevena dressing to chest , lito wraps to both legs HEAD: Normocephalic. EYES: No scleral icterus. No injection or drainage. NECK: Supple, trachea midline. No JVD or lymphadenopathy. CARDIOVASCULAR: Regular rate and rhythm without murmurs, gallops, or rubs. RESPIRATORY: Breath sounds equal bilaterally. No accessory muscle use. chest tube to wall suction, no air leak , drained 135cc/ 12 hrs GASTROINTESTINAL: Abdomen soft, non-tender, nondistended. MUSCULOSKELETAL: No cyanosis, or edema. BACK: Nontender without obvious deformity. No CVA tenderness. Labs: Laboratory Results - last 12 hr 06/14/18 06/14/18 06/14/18 06:13 07:07 11:21 POC Glucose 113 H 101 177 H 06/14/18 14:38 POC Glucose 130 H Result Diagrams: 06/14/18 04:10 06/14/18 04:10 - Plan (3) S/P CABG x 4 Plan: ASA, statin , BB OOB PT pulm toileting leave chest tubes in
--- NOTE | 2018-06-14 18:08 | P.DCO ---
- Diagnosis (1) CAD (coronary artery disease), [place] coronary artery Status: Acute (2) Hx of pulmonary embolus Status: Chronic (3) S/P CABG x 4 Status: Acute - Home Health Nursing Order: Medical education, Signs/symptoms of disease process, Wound care and dressing changes, Nursing assessment with vital signs Instructions: Heart and Vascular Surgery patients *Special attention to sternal dressing Mandatory frequency Assess and evaluation, 4 days in a row The next week 3X week 2 times a week for 4 weeks 1 time a week for 5 weeks Schedule Heart and Vascular patients for full 60 day certification period Initial visit Review Open Heart Surgery Discharge Instructions (Sternal precautions, Activity, Elastic hose, Incision care, Driving, Incentive spirometry, Smoking, [place], Work and other) Need Betadine to paint incision Medication reconciliation Importance of follow up care/ check on appointments Make calendar record temperature daily When to call [facility] at Home nurse, review instructions, phone list Incentive Spirometry, demonstration Visit 1- Begin discharge instruction for patient family and/ or caregiver using teach back method- Signs and symptoms of infection Disease characteristics Medicines and side effects Foods and nutrition/ appetite Infection control/ hand washing/ hygiene Visit 2- Continue teaching Discharge instructions- include additional information on smoking cessation , sternal dressing (sternal vac) Visit 3- Continue teaching- Cough and deep breathing, incision monitoring. Choose my plate Visit 4- Continue teaching- Discuss limitations Discuss how they are feeling Discuss progress toward goals Remaining visits- continue teaching and monitoring For any questions please call : Monday 8am-5pm Heart & Vascular Surgery Office ( Dr. Jefferson & Dr. Schaeffer), After Hours / Nights (5pm -8am) Weekends and Holidays Please call [facility] Cardiac Intermediate Care Unit (CIC) Charge Nurse PREVENA Single Use Negative Wound Therapy System Caregiver Instruction Sheet 1. A Prevena dressing system was applied to the chest incision during surgery , to promote wound healing. It works via a suction device (negative pressure wound therapy) to remove low to moderate levels of exudate (drainage) and infectious materials. We recommend that the device stay in place for up to seven days, from day of surgery. 2. Day of Surgery___/ Day of Removal /12/01 3. The dressing should only be removed by a health customer care voice consultant. Please arrange removal of device to coincide with Home Health visit and or with Nursing staff at Rehab 4. If skin reddening or irritation of skin occurs, or excessive drainage, please notify the Cardiovascular Surgeons office at [phone]. 5. Light showering is permissible; however the pump should be disconnected and placed in safe location, where it will not get wet. The dressing should not be exposed to direct spray or submerged in water. No bath tub / shower only. Ensure the end of the tubing attached to the dressing is facing down so that water does not enter the top of the tube. 6. To remove Prevena dressing: press purple button to turn off device / remove the suction. Then disconnect the tubing from the pump. The fixation strips should be stretched away from the skin and the dressing lifted at one corner and peeled back until it has been fully removed. 7. After removal, it is ok to shower daily using liquid dial soap and clean wash cloth, rinse and pat dry, and leave incision open to air dry. For any concerns regarding Prevena dressing, and or wounds, please contact Mel Olguin, patient navigator at [phone] or notify the Cardiovascular Surgeons office at [phone]. Incentive spirometry Q1 hr x 10, while awake, also use acapella device hourly whole awake Sternal Breast Bone Precautions: NO pushing or pulling, ( pt must use sternal pillow to support chest with all activities and with coughing ( takes up to 3 months breast bone to heal ) Daily incision care: ok to shower daily, no tub bath. Wash all incisions with liquid dial soap, clean wash cloth to each site, rinse and pat dry. Observe for any signs of infection, such as drainage which is dark yellow, [place], green or foul smelling. Immediately report to the surgeon any drainage from the chest incision, or legs, and for any abnormal drainage from the chest tube sites. Notify surgeon if any temp >101.5 degrees F. When specialty dressing removed/ or if you do not have one, continue to shower daily as above, then rinse and pat incision dry and paint with betadine daily x 5 days. Allow steri strips to fall off if you have any. Avoid lotions, creams, salves, oils, etc. for the first month Please see attached forms for additional instructions regarding post Open Heart specialty wound vacuum dressings. ANNI or Prevena , Dressing to be removed by Nursing staff on ___06/20/18____ F/U appointment: as per [place] instructions: PCP in 2 weeks, CV surgeon 2 weeks, Senior Assistant Manager 3-4 weeks For any questions regarding incisions/ dressing / meds / post op care or above Symptoms, Monday 8am-5pm Heart & Vascular Surgery Office ( Dr. Jefferson & Dr. Schaeffer), After Hours / Nights (5pm -8am) Weekends and Holidays Please call [facility] Cardiac Intermediate Care Unit (CIC) Charge Nurse - Case Management Consult Case Management Consult-Home Health: Yes - Certification I have seen patient Alcon Francis SR on 06/14/18. My clinical findings support the need for the requested home health care services because: Deconditioned with increased weakness I certify that my clinical findings support that this patient is homebound because: Post-op weakness
[2018-06-14] MEDS: traZODone 100 MG Tablet PO SCH ×2 (20:43→20:44)
[2018-06-14] MEDS: Docusate Sodium 100 MG Capsule PO SCH (20:44)
[2018-06-15] MEDS: Acetaminophen 325 MG Tablet PO PRN ×3 (00:11→23:00)
[2018-06-15] MEDS: Insulin NovoLOG Aspart Correctional Sugar Inj SQ SCH ×6 (01:36→21:14)
[2018-06-15] MEDS: ceFAZolin 2 GM Premix Inj 2 GM/50 ML PIGGYBACK IV.SIG SCH (03:29)
[2018-06-15 04:14] LABS: Baso % (Auto) 0.1 % (0.0-2.0); Eos % (Auto) 0.2 % (0.0-4.0); Hematocrit 31.1 % (39.0-51.0); Hemoglobin 10.3 gm/dL (13.0-17.0); Lymph # (Auto) 0.9 th/mm3 (1.0-4.8); Lymph % (Auto) 5.5 % (9.0-44.0); Mean Corpuscular HGB Conc 33.1 % (32.0-36.0); Mean Corpuscular Hemoglobin 30.3 pg (27.0-34.0); Mean Corpuscular Volume 91.6 fL (80.0-100.0); Mean Platelet Volume 8.9 fL (7.0-11.0); Mono # (Auto) 2.3 th/mm3 (0.0-0.9); Mono % (Auto) 14.2 % (0.0-8.0); Neut # (Auto) 12.7 th/mm3 (1.8-7.7); Platelet Count 173 th/mm3 (150-450); Red Blood Count 3.39 mil/mm3 (4.50-5.90); Red Cell Distribution Width 14.4 % (11.6-17.2); White Blood Count 15.9 th/mm3 (4.0-11.0)
[2018-06-15 04:39] LABS: Calcium 7.8 mg/dL (8.5-10.1); Carbon Dioxide 27.9 meq/L (21.0-32.0); Potassium 4.4 meq/L (3.5-5.1)
[2018-06-15 06:50] LABS: Lymphocytes 6 % (9-44); Monocytes 12 % (0-8); Myelocytes 1 % (0-0)
[2018-06-15 06:52] LABS: Platelet Estimate Normal (Normal); Platelet Morphology Normal (Normal); RBC Morphology Normal (Normal)
[2018-06-15] MEDS: Polyethylene Glycol 3350 17 GM Packet PO SCH (08:20)
[2018-06-15] MEDS: Docusate Sodium 100 MG Capsule PO SCH ×2 (08:21→21:35)
[2018-06-15] MEDS: Amiodarone 200 MG Tablet PO SCH ×2 (08:22→22:57)
[2018-06-15] MEDS: Metoprolol Tartrate 25 MG Tablet PO SCH ×2 (08:22→22:58)
[2018-06-15] MEDS: Multivitamin/Minerals Therapeutic Tablet PO SCH (08:23)
--- NOTE | 2018-06-15 10:23 | P.PNCA ---
Subjective Interval history: Patient sitting on side of bed. Admits to pain from chest incision and chest tube sites. Telemetry reveals sinus tachycardia. Medications and Allergies Active Medications: Active Medications Acetaminophen (Tylenol) 650 mg PO Q6H PRN PRN Reason: HEADACHE Last Admin: 06/15/18 00:11 Dose: 650 mg Hydrocodone Bitart/Acetaminophen ([place] 5/325) 1 tab PO Q3H PRN PRN Reason: PAIN SCALE 1 TO 5 Last Admin: 06/15/18 08:21 Dose: 1 tab Al Hydroxide/Mg Hydroxide (Milk Of Flori Liq) 30 ml PO DAILY [facility] Last Admin: 06/15/18 08:20 Dose: 30 ml Albuterol (Duoneb Neb (Prn)) 1 ampul NEB Q2HR NEB PRN PRN Reason: WHEEZING Albuterol (Duoneb Neb (Alejandro)) 1 ampul NEB Q6HR WHILE AWAKE NEB [facility] Stop: 06/16/18 13:59 Last Admin: 06/15/18 08:33 Dose: 1 ampul Amiodarone HCl (Cordarone) 200 mg PO Q12HR [facility] Last Admin: 06/15/18 08:22 Dose: 200 mg Aspirin (Aspirin Chew) 81 mg PO DAILY [facility] Last Admin: 06/15/18 08:22 Dose: 81 mg Bisacodyl (Dulcolax Supp) 10 mg RECTAL PRN PRN PRN Reason: SEE LABEL COMMENTS Chlorhexidine Gluconate (Hibiclens 4% Topical) 1 applicatio TOPICAL SERVICE OPERATOR [facility] Stop: 06/17/18 16:08 Clopidogrel Bisulfate (Plavix) 75 mg PO DAILY [facility] Last Admin: 06/15/18 08:22 Dose: 75 mg Sodium Chloride 77.5 ml/Papaverine HCl 60 mg/Nitroglycerin 100 mcg/Diltiazem HCl 100 mg 0 ml IRRIGATION SERVICE OPERATOR [facility] Stop: 06/17/18 16:59 Last Admin: 06/13/18 09:12 Dose: 1 bag Sodium Chloride 500 ml/ (Cefazolin Sodium 500 mg) 0 ml IRRIGATION SERVICE OPERATOR [facility] Stop: 06/17/18 16:59 Last Admin: 06/13/18 09:12 Dose: 1 irrig.soln Dextrose (D50w Vial) 50 ml IV.PUSH UNSCH PRN PRN Reason: PER HYPOGLYCEMIA PROTOCOL Dextrose (D50w Vial) 50 ml IV.PUSH UNSCH PRN PRN Reason: PER HYPOGLYCEMIA PROTOCOL Dextrose (D50w Vial) 50 ml IV.PUSH UNSCH PRN PRN Reason: PER HYPOGLYCEMIA PROTOCOL Docusate Sodium (Colace) 100 mg PO BID [facility] Last Admin: 06/15/18 08:21 Dose: 100 mg Glucagon (Glucagon Inj) 1 mg OTHER PRN PRN PRN Reason: For hypoglycemia Sodium Chloride (Ns Inj) 1,000 mls @ 30 mls/hr IV.SIG .Q24H [facility] Last Admin: 06/14/18 10:51 Dose: Not Given Insulin Human Regular 100 unit (/ Sodium Chloride) 100 mls @ 3 mls/hr IV.CONT TITRATE PRN; Protocol PRN Reason: See Protocol Sodium Chloride (Ns Inj) 500 mls @ 30 mls/hr IV.SIG .Q10H [facility] Last Admin: 06/13/18 09:14 Dose: Not Given Insulin Aspart (Novolog Insulin Correctional Sugar Inj) 0 unit SQ ACHS [facility]; Protocol Last Admin: 06/15/18 09:51 Dose: 3 unit Ketorolac Tromethamine (Toradol Inj) 15 mg IV.PUSH Q6H PRN PRN Reason: SEE LABEL COMMENTS Stop: 06/15/18 12:59 Last Admin: 06/14/18 17:34 Dose: 15 mg Metoprolol Tartrate (Lopressor) 12.5 mg PO SERVICE OPERATOR [facility] Stop: 06/17/18 16:09 Last Admin: 06/13/18 05:19 Dose: 12.5 mg Metoprolol Tartrate (Lopressor) 12.5 mg PO BID [facility] Last Admin: 06/15/18 08:22 Dose: 12.5 mg Multivitamins/Minerals (Theragran-M) 1 tab PO DAILY [facility] Last Admin: 06/15/18 08:23 Dose: 1 tab Ondansetron HCl (Zofran Inj) 4 mg IV.PUSH Q6H PRN PRN Reason: NAUSEA OR VOMITING Last Admin: 06/15/18 08:37 Dose: 4 mg Pantoprazole Sodium (Protonix) 40 mg PO DAILY@06 [facility] Last Admin: 06/15/18 05:28 Dose: 40 mg Polyethylene Glycol (Miralax) 17 gm PO DAILY [facility] Last Admin: 06/15/18 08:20 Dose: 17 gm Sennosides (Senokot) 8.6 mg PO HS [facility] Last Admin: 06/14/18 20:45 Dose: 8.6 mg Sodium Biphosphate/Sodium Phosphate (Fleets Enema (Adult)) 133 ml RECTAL UNSCH PRN PRN Reason: SEE LABEL COMMENTS Sodium Chloride (Ns Flush) 2 ml IV.FLUSH BID [facility] Last Admin: 06/15/18 08:22 Dose: 2 ml Sodium Chloride (Ns Flush) 2 ml IV.FLUSH PRN PRN PRN Reason: FLUSH AFTER USING IV ACCESS Tamsulosin HCl (Flomax) 0.4 mg PO DAILY [facility] Last Admin: 06/15/18 08:21 Dose: 0.4 mg Temazepam (Restoril) 15 mg PO HS PRN PRN Reason: SLEEP Last Admin: 06/12/18 22:16 Dose: 15 mg Temazepam (Restoril) 15 mg PO HS PRN PRN Reason: SLEEP Trazodone HCl (Desyrel) 100 mg PO [facility] Last Admin: 06/14/18 20:44 Dose: 100 mg Trazodone HCl (Desyrel) 200 mg PO [facility] Last Admin: 06/14/18 20:43 Dose: 200 mg Allergies Allergy/AdvReac Type Severity Reaction Status Date / Time Iodinated Contrast- Oral and Allergy Shortness Verified 06/11/18 11:05 IV Dye of Breath Home Medications Medication Instructions Recorded Confirmed Type albuterol sulfate 2 puff INHALATION Q4H PRN 06/11/18 06/11/18 History aspirin [Aspir-81] 81 mg PO DAILY 06/11/18 06/11/18 History atorvastatin 80 mg PO DAILY 06/11/18 06/11/18 History esomeprazole magnesium 40 mg PO DAILY 06/11/18 06/11/18 History fluticasone-salmeterol [Advair 1 inh INHALATION BID 06/11/18 06/11/18 History Diskus] metoprolol tartrate 25 mg PO BID 06/11/18 06/11/18 History montelukast 10 mg PO QPM 06/11/18 06/11/18 History nitroglycerin 0.4 mg SUBLINGUAL Q5-15M PRN 06/11/18 06/11/18 History tamsulosin 0.4 mg PO DAILY 06/11/18 06/11/18 History tramadol 50 mg PO Q6H PRN 06/11/18 06/11/18 History trazodone 50 mg PO DAILY 06/11/18 06/11/18 History warfarin [Coumadin] 5 mg PO DAILY 06/11/18 06/11/18 History melatonin 10 mg PO HS PRN 06/12/18 06/12/18 History Physical Exam Vital signs: Vital Signs 06/14/18 10:24 06/14/18 10:26 06/14/18 10:51 Temperature Pulse Rate 92 H Respiratory Rate 18 19 Blood Pressure Pulse Oximetry 96 06/14/18 10:52 06/14/18 11:24 06/14/18 12:00 Temperature 99.1 F 99.1 F Pulse Rate 101 H 93 H Respiratory Rate 20 22 18 Blood Pressure 104/65 153/68 H Pulse Oximetry 96 98 06/14/18 13:00 06/14/18 14:00 06/14/18 15:00 Temperature 98.6 F Pulse Rate 92 H 86 101 H Respiratory Rate 18 Blood Pressure 106/61 Pulse Oximetry 95 06/14/18 15:27 06/14/18 20:00 06/14/18 20:12 Temperature 100.1 F H Pulse Rate 85 111 H Respiratory Rate 16 20 Blood Pressure 99/54 L Pulse Oximetry 96 97 06/14/18 20:14 06/14/18 21:00 06/14/18 22:00 Temperature Pulse Rate 105 H 112 H 100 H Respiratory Rate 17 Blood Pressure Pulse Oximetry 06/14/18 23:00 06/15/18 00:00 06/15/18 01:00 Temperature 101.1 F H Pulse Rate 112 H 115 H 114 H Respiratory Rate 20 Blood Pressure 101/55 L Pulse Oximetry 92 L 06/15/18 02:00 06/15/18 03:00 06/15/18 04:00 Temperature 100.6 F H Pulse Rate 120 H 112 H 110 H Respiratory Rate 20 Blood Pressure 104/58 L Pulse Oximetry 93 L 06/15/18 05:00 06/15/18 06:00 06/15/18 07:00 Temperature 98.6 F Pulse Rate 108 H 104 H 108 H Respiratory Rate 18 Blood Pressure 117/63 Pulse Oximetry 92 L 06/15/18 08:00 06/15/18 08:33 06/15/18 08:34 Temperature Pulse Rate 107 H Respiratory Rate 18 18 Blood Pressure Pulse Oximetry 95 Intake & Output 06/14/18 06/15/18 06/15/18 18:59 06:59 18:59 Intake Total 870 / 870 50 / 50 50 / 50 Output Total 450 / 450 60 / 60 Balance 420 / 420 -10 / -10 50 / 50 Weight 80 kg Intake: IV 150 / 150 50 / 50 50 / 50 Ofirmev Inj 1,000 mg In 100 ml 100 / 100 @ 400 mls/hr IV.SIG Q6H ALEJANDRO Rx# :[id number] Ancef 2 GM Premix Inj 2 gm In 50 / 50 50 / 50 50 / 50 50 ml @ 100 mls/hr IV.SIG Q8H ALEJANDRO Rx#:[id number] Oral 720 / 720 Output: Urine 450 / 450 Chest Tube Drainage 60 / 60 Pleural/Mediastinal 60 / 60 Other: # Voids 1 1 Date of Last Bowel Movement 06/12/18 06/12/18 - Constitutional no acute distress - Routine HEENT Exam Head: Present: normocephalic Eye: Present: EOMI, PERRL, normal accommodation ENT: Present: mucous membranes moist - Routine Neck Exam Present: supple - Routine Respiratory Exam Present: diminished air movement Comments: chest tube in place - Routine Cardiovascular Exam Present: tachycardia - Routine Abdominal Exam Present: soft - Routine Skin Exam Comments: midline chest incision - Routine Neurological Exam Present: alert, oriented X3 - Detailed Neurological Exam: Coma Scale Eye Opening: Spontaneous Verbal Response: Oriented Motor Response: Obey commands Samir Coma Scale Total: 15 - Routine Psychiatric Exam Present: normal affect - Urinary Catheter Management Indwelling Temp Sensing Catheter Cath placed during this visit: yes Reason for continuing: Hourly intake/output Insertion date: 06/13/18 Insertion time: 07:30 Results 06/15/18 03:43 06/15/18 03:43 CBC 06/14/18 06/15/18 Range/Units 04:10 03:43 WBC 14.0 H 15.9 H (4.0-11.0) th/mm3 RBC 3.82 L 3.39 L (4.50-5.90) mil/mm3 Hgb 11.7 L 10.3 L (13.0-17.0) gm/dL Hct 34.4 L 31.1 L (39.0-51.0) % Plt Count 212 173 (150-450) th/mm3 Neut # (Auto) 12.7 H (1.8-7.7) th/mm3 Lymph # (Auto) 0.9 L (1.0-4.8) th/mm3 [place] # (Auto) 2.3 H (0.0-0.9) th/mm3 Eos # (Auto) 0.0 (0.0-0.4) th/mm3 Baso # (Auto) 0.0 (0.0-0.2) th/mm3 Comprehensive Metabolic Panel 06/14/18 06/15/18 Range/Units 04:10 03:43 Sodium 136 136 (136-145) meq/L Potassium 4.4 4.4 (3.5-5.1) meq/L Chloride 106 104 (98-107) meq/L Carbon Dioxide 22.8 27.9 (21.0-32.0) meq/L BUN 16 20 H (7-18) mg/dL Creatinine 0.81 1.06 (0.60-1.30) mg/dL Calcium 7.6 L D 7.8 L (8.5-10.1) mg/dL Intake and Output 06/14/18 06/15/18 06/15/18 22:59 06:59 14:59 Intake Total 770 / 770 50 / 50 Output Total 450 / 450 60 / 60 Balance 320 / 320 -60 / -60 50 / 50 Intake: IV 50 / 50 50 / 50 Ancef 2 GM Premix Inj 2 gm In 50 / 50 50 / 50 50 ml @ 100 mls/hr IV.SIG Q8H ALEJANDRO Rx#:[id number] Oral 720 / 720 Output: Urine 450 / 450 Chest Tube Drainage 60 / 60 Pleural/Mediastinal 60 / 60 Other: # Voids 1 1 Date of Last Bowel Movement 06/12/18 06/12/18 06/12/18 Weight 80 kg - Imaging and Cardiology Imaging: Impressions Chest X-Ray 06/13/18 13:00 CONCLUSION: Support equipment in good position. Stable postoperative chest. Chest X-Ray 06/14/18 05:00 CONCLUSION: Interval extubation. Remaining support apparatus unchanged. Stable airspace disease and small left effusion. Assessment and Plan - Plan Assessment ASHD-status post CABG Hx of PE 30 years ago, will stay off Coumadin and continue Plavix and ASA. Plan -Status post- Urgent Off-pump Coronary Artery Bypass Grafting x 4 with Left Internal Mammary Artery (ALCANTAR) to Left Anterior Descending (LAD), reverse saphenous vein graft to obtuse Marginal branch of the left Circumflex artery, reverse saphenous vein graft to the posterior Descending branch of the right Coronary artery, reverse saphenous vein graft to the diagonal 1 branch of the LAD and Bilateral leg Endoscopic Vein [place]. -Will Continue on plavix, ASA, BB, and statin. -Recovering well. Telemetry reveals Sinus tachycardia. Patient was seen and evaluated by Dr. Beckford who participated in care management decision making.
--- NOTE | 2018-06-15 16:25 | P.PNCV ---
- Note Subjective/Hospital Course: A 68-year-old male patient of Dr. Vik Reeves, Dr. Beckford, who presented to his office at the beginning of the month for complaint of chest pain that he has been having off and on with exertion over the past couple of months. Scale was 4/10, more like a pressure sensation associated with some shortness of breath. Normally very active, but has been somewhat limited because of this ongoing intermittent chest discomfort. He underwent echocardiogram at Dr. Beckford's office, which showed an ejection fraction of 56%, some mild mitral regurgitation, mild tricuspid regurgitation. He underwent elective cardiac catheterization today, which showed an ejection fraction of 60%. The left main was 75% ostial lesion, the mid distal LAD 75%, the diagonal 75%. The circ was 95. The RCA 50%. We were consulted to evaluate for coronary artery bypass graft x4. 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 They were unable to find the source of the cause of the pulmonary emboli. Therefore, they kept him on continuous treatment. He has been off his Coumadin for his catheterization today. Also, history of benign prostatic hypertrophy, history of premature atrial contraction, history of a pulmonary nodule. The patient apparently had recent followup CT scan at [facility], which we can obtain. Also, history of depression. 06/12 no chest pain last pm carotid us : good Fev1 2.30 stable for surgery in am 06/13 SURGICAL PROCEDURE 1. Urgent Off-pump Coronary Artery Bypass Grafting x 4 with Left Internal Mammary Artery (ALCANTAR) to Left Anterior Descending (LAD), reverse saphenous vein graft to obtuse Marginal branch of the left Circumflex artery, reverse saphenous vein graft to the posterior Descending branch of the right Coronary artery, reverse saphenous vein graft to the diagonal 1 branch of the LAD 2. Bilateral leg Endoscopic Vein [place] 3. Intraoperative Vein Mapping. extubated after surgery 3100cc cyrstalloid , 500cc cell saver, 250cc EBL 06/14 doing well up up in chair, transferred to stepdown on ASA, statin , BB amiodarone , plavix 06/15 chest tube removed without difficulty not sleeping well at night has scheduled trazodone and prn Restoril had temp last night , WBC elevated will dc cvc phong e, need pulm toileting OOB ambulate Objective: Vital Signs - 24 hr 06/14/18 20:00 06/14/18 20:12 06/14/18 20:14 Temperature 100.1 F H Pulse Rate 111 H 105 H Respiratory Rate 20 17 Blood Pressure 99/54 L Pulse Oximetry 96 97 06/14/18 21:00 06/14/18 22:00 06/14/18 23:00 Temperature Pulse Rate 112 H 100 H 112 H Respiratory Rate Blood Pressure Pulse Oximetry 06/15/18 00:00 06/15/18 01:00 06/15/18 02:00 Temperature 101.1 F H Pulse Rate 115 H 114 H 120 H Respiratory Rate 20 Blood Pressure 101/55 L Pulse Oximetry 92 L 06/15/18 03:00 06/15/18 04:00 06/15/18 05:00 Temperature 100.6 F H Pulse Rate 112 H 110 H 108 H Respiratory Rate 20 Blood Pressure 104/58 L Pulse Oximetry 93 L 06/15/18 06:00 06/15/18 07:00 06/15/18 08:00 Temperature 98.6 F Pulse Rate 104 H 108 H 114 H Respiratory Rate 18 18 Blood Pressure 117/63 Pulse Oximetry 92 L 06/15/18 08:33 06/15/18 08:34 06/15/18 09:00 Temperature Pulse Rate 107 H 104 H Respiratory Rate 18 Blood Pressure Pulse Oximetry 95 06/15/18 10:00 06/15/18 11:00 06/15/18 14:39 Temperature 98.9 F Pulse Rate 102 H 95 H 100 H Respiratory Rate 18 18 Blood Pressure 116/61 Pulse Oximetry 93 L GENERAL: A&O x 3 SKIN: Warm and dry. prevena dressing to chest , incision to left leg HEAD: Normocephalic. EYES: No scleral icterus. No injection or drainage. NECK: Supple, trachea midline. No JVD or lymphadenopathy. CARDIOVASCULAR: Regular rate and rhythm without murmurs, gallops, or rubs. RESPIRATORY: Breath sounds equal bilaterally. No accessory muscle use diminished in bases . GASTROINTESTINAL: Abdomen soft, non-tender, nondistended. MUSCULOSKELETAL: No cyanosis, or edema. BACK: Nontender without obvious deformity. No CVA tenderness. Labs: Laboratory Results - last 12 hr 06/12/18 06/15/18 06/15/18 05:35 03:43 03:43 WBC Differential Manual diff final Seg Neuts % (Manual) 81 H Lymphocytes % (Manual) 6 L Monocytes % (Manual) 12 H Myelocytes % (Man) 1 H Abs Neuts (Manual) 13.0 H Platelet Estimate Normal Platelet Morphology Normal RBC Morphology Normal Sodium 136 Potassium 4.4 Chloride 104 Carbon Dioxide 27.9 Anion Gap 4 L BUN 20 H Creatinine 1.06 Estimated GFR 69 L POC Glucose Random Glucose 111 H Calcium 7.8 L Magnesium 2.0 MTS Gel Crossmatch See Detail 06/15/18 06/15/18 06/15/18 05:23 08:16 12:08 WBC Differential Seg Neuts % (Manual) Lymphocytes % (Manual) Monocytes % (Manual) Myelocytes % (Man) Abs Neuts (Manual) Platelet Estimate Platelet Morphology RBC Morphology Sodium Potassium Chloride Carbon Dioxide Anion Gap BUN Creatinine Estimated GFR POC Glucose 113 H 134 H 122 H Random Glucose Calcium Magnesium MTS Gel Crossmatch Result Diagrams: 06/15/18 03:43 06/15/18 03:43 - Plan (3) S/P CABG x 4 Plan: ASA, statin , BB OOB PT pulm toileting chest tubes dc (4) Leukocytosis Plan: f/u labs in am dc cvc line, check ua
[2018-06-15] MEDS: traZODone 50 MG Tablet PO SCH (22:58)
[2018-06-16 00:20] LABS: Bilirubin,Urine Negative (Negative); Clarity,Urine Clear (Clear); Color,Urine Yellow (Yellw/Straw); Glucose,Urine (UA) Negative (Negative); Leukocyte Esterase,Urine Negative (Negative); Mucus,Urine Few /lpf (Occasional); Nitrite,Urine Negative (Negative); Specific Gravity,Urine 1.018 (1.002-1.035)
--- NOTE | 2018-06-16 05:32 | XR ---
EXAM DATE: 06/16/2018 5:25 AM EST AGE/SEX: 68 years / Male INDICATIONS: Shortness of breath, possible pneumothorax. CLINICAL DATA: This is the patient's subsequent encounter. Patient reports that signs and symptoms h ave been present for 4 - 6 days and indicates a pain score of 1/10. MEDICAL/SURGICAL HISTORY: Hiatal hernia. BPH. PE. CABG. COMPARISON: [facility] [place], CHEST 1V SINGLE AP, 06/14/2018. . FINDINGS: Portable AP view of the chest demonstrates a normal-sized cardiac silhouette post median sternotomy. Right IJ line remains present. Mediastinal drain and left chest tube have been removed. No pneumothor ax is visualized. There is increased airspace opacity in the left mid and lower lung zone with obscur ation the left hemidiaphragm and a small left pleural-based opacity. Right lung demonstrates no defin ite abnormality. CONCLUSION: 1. No pneumothorax following left chest tube removal. 2. Persistent small to moderate size left pleural effusion with increased airspace opacity in the le ft lower lung zone. Electronically signed by: Thomas Henry MD 06/16/2018 5:31 AM EST
[2018-06-16 07:02] LABS: Baso % (Auto) 0.3 % (0.0-2.0); Eos # (Auto) 0.2 th/mm3 (0.0-0.4); Eos % (Auto) 1.4 % (0.0-4.0); Hematocrit 28.7 % (39.0-51.0); Hemoglobin 9.9 gm/dL (13.0-17.0); Lymph # (Auto) 1.3 th/mm3 (1.0-4.8); Lymph % (Auto) 9.8 % (9.0-44.0); Mean Corpuscular HGB Conc 34.5 % (32.0-36.0); Mean Corpuscular Hemoglobin 31.4 pg (27.0-34.0); Mean Corpuscular Volume 90.9 fL (80.0-100.0); Mean Platelet Volume 8.7 fL (7.0-11.0); Mono % (Auto) 14.5 % (0.0-8.0); Neut # (Auto) 10.1 th/mm3 (1.8-7.7); Platelet Count 187 th/mm3 (150-450); Red Blood Count 3.16 mil/mm3 (4.50-5.90); Red Cell Distribution Width 14.4 % (11.6-17.2); White Blood Count 13.6 th/mm3 (4.0-11.0)
[2018-06-16 07:27] LABS: Anion Gap 5 meq/L (5-15); Blood Urea Nitrogen 14 mg/dL (7-18); Carbon Dioxide 28.2 meq/L (21.0-32.0); Chloride 104 meq/L (98-107); Glomerular Filtration Rate Greater Than 89 mL/min (>89); Glucose,Random 103 mg/dL (74-106); Potassium 4.1 meq/L (3.5-5.1); Sodium 137 meq/L (136-145)
--- NOTE | 2018-06-16 08:52 | P.PNCV ---
- Note Subjective/Hospital Course: A 68-year-old male patient of Dr. Vik Reeves, Dr. Beckford, who presented to his office at the beginning of the month for complaint of chest pain that he has been having off and on with exertion over the past couple of months. Scale was 4/10, more like a pressure sensation associated with some shortness of breath. Normally very active, but has been somewhat limited because of this ongoing intermittent chest discomfort. He underwent echocardiogram at Dr. Beckford's office, which showed an ejection fraction of 56%, some mild mitral regurgitation, mild tricuspid regurgitation. He underwent elective cardiac catheterization today, which showed an ejection fraction of 60%. The left main was 75% ostial lesion, the mid distal LAD 75%, the diagonal 75%. The circ was 95. The RCA 50%. We were consulted to evaluate for coronary artery bypass graft x4. 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 They were unable to find the source of the cause of the pulmonary emboli. Therefore, they kept him on continuous treatment. He has been off his Coumadin for his catheterization today. Also, history of benign prostatic hypertrophy, history of premature atrial contraction, history of a pulmonary nodule. The patient apparently had recent followup CT scan at [facility], which we can obtain. Also, history of depression. 06/12 no chest pain last pm carotid us : good Fev1 2.30 stable for surgery in am 06/13 SURGICAL PROCEDURE 1. Urgent Off-pump Coronary Artery Bypass Grafting x 4 with Left Internal Mammary Artery (ALCANTAR) to Left Anterior Descending (LAD), reverse saphenous vein graft to obtuse Marginal branch of the left Circumflex artery, reverse saphenous vein graft to the posterior Descending branch of the right Coronary artery, reverse saphenous vein graft to the diagonal 1 branch of the LAD 2. Bilateral leg Endoscopic Vein [place] 3. Intraoperative Vein Mapping. extubated after surgery 3100cc cyrstalloid , 500cc cell saver, 250cc EBL 06/14 doing well up up in chair, transferred to stepdown on ASA, statin , BB amiodarone , plavix 06/15 chest tube removed without difficulty not sleeping well at night has scheduled trazodone and prn Restoril had temp last night , WBC elevated will dc cvc phong e, need pulm toileting OOB ambulate 06/16 Doing well Hemodynamic is stable Likely discharge tomorrow Objective: Vital Signs - 24 hr 06/15/18 09:00 06/15/18 10:00 06/15/18 11:00 Temperature 98.9 F Pulse Rate 104 H 102 H 95 H Respiratory Rate 18 Blood Pressure 116/61 Pulse Oximetry 93 L 06/15/18 12:00 06/15/18 13:00 06/15/18 14:00 Temperature Pulse Rate 94 H 100 H 96 H Respiratory Rate Blood Pressure Pulse Oximetry 06/15/18 14:39 06/15/18 15:00 06/15/18 16:00 Temperature 99.9 F H Pulse Rate 100 H 106 H 106 H Respiratory Rate 18 18 Blood Pressure 138/66 Pulse Oximetry 98 06/15/18 17:00 06/15/18 19:00 06/15/18 20:00 Temperature 99.7 F H Pulse Rate 102 H 112 H Respiratory Rate 22 Blood Pressure 125/68 Pulse Oximetry 93 L 93 L 06/15/18 21:09 06/15/18 23:00 06/16/18 03:00 Temperature 100.4 F H 97.9 F Pulse Rate 111 H 119 H 102 H Respiratory Rate 17 20 18 Blood Pressure 130/71 143/76 H Pulse Oximetry 94 L 94 L 95 06/16/18 07:56 06/16/18 07:57 Temperature Pulse Rate 95 H Respiratory Rate 16 Blood Pressure Pulse Oximetry 95 Labs: Laboratory Results - last 12 hr 06/15/18 06/15/18 06/16/18 23:05 23:30 06:25 WBC 13.6 H RBC 3.16 L Hgb 9.9 L Hct 28.7 L MCV 90.9 MCH 31.4 MCHC 34.5 RDW 14.4 Plt Count 187 MPV 8.7 Neut % (Auto) 74.0 H Lymph % (Auto) 9.8 [place] % (Auto) 14.5 H Eos % (Auto) 1.4 Baso % (Auto) 0.3 Neut # (Auto) 10.1 H Lymph # (Auto) 1.3 [place] # (Auto) 2.0 H Eos # (Auto) 0.2 Baso # (Auto) 0.0 WBC Differential . Differential Comment Auto diff final Sodium Potassium Chloride Carbon Dioxide Anion Gap BUN Creatinine Estimated GFR POC Glucose 110 Random Glucose Calcium Urine Color Yellow Urine Clarity Clear Urine pH 6.0 Ur Specific [place] 1.018 Urine Protein Negative Urine Glucose (UA) Negative Urine Ketones 20 Urine Occult Blood Negative Urine Nitrate Negative Urine Bilirubin Negative Urine Urobilinogen Less than 2 Ur Leukocyte Esterase Negative Urine RBC 1 Urine WBC 1 Urine Mucus Few H Micro UA Comment Culture not ind Ur Microscopic Review Not Reportable Urine Culture Comments Culture not ind 06/16/18 06/16/18 06/16/18 06:25 06:30 08:31 WBC RBC Hgb Hct MCV MCH MCHC RDW Plt Count MPV Neut % (Auto) Lymph % (Auto) [place] % (Auto) Eos % (Auto) Baso % (Auto) Neut # (Auto) Lymph # (Auto) [place] # (Auto) Eos # (Auto) Baso # (Auto) WBC Differential Differential Comment Sodium 137 Potassium 4.1 Chloride 104 Carbon Dioxide 28.2 Anion Gap 5 BUN 14 Creatinine 0.80 Estimated GFR Greater than 89 POC Glucose 113 H 99 Random Glucose 103 Calcium 8.0 L Urine Color Urine Clarity Urine pH Ur Specific [place] Urine Protein Urine Glucose (UA) Urine Ketones Urine Occult Blood Urine Nitrate Urine Bilirubin Urine Urobilinogen Ur Leukocyte Esterase Urine RBC Urine WBC Urine Mucus Micro UA Comment Ur Microscopic Review Urine Culture Comments Result Diagrams: 06/16/18 06:25 06/16/18 06:25 - Plan (3) S/P CABG x 4 Plan: ASA, statin , BB OOB PT pulm toileting chest tubes dc (4) Leukocytosis Plan: f/u labs in am dc cvc line, check ua
[2018-06-16] MEDS: Polyethylene Glycol 3350 17 GM Packet PO SCH (09:11)
[2018-06-16] MEDS: Amiodarone 200 MG Tablet PO SCH ×2 (09:12→21:00)
[2018-06-16] MEDS: Metoprolol Tartrate 25 MG Tablet PO SCH ×3 (09:12→20:59)
[2018-06-16] MEDS: Docusate Sodium 100 MG Capsule PO SCH ×2 (09:12→20:59)
[2018-06-16] MEDS: Multivitamin/Minerals Therapeutic Tablet PO SCH (09:12)
[2018-06-16] MEDS: Insulin NovoLOG Aspart Correctional Sugar Inj SQ SCH ×4 (09:13→20:59)
--- NOTE | 2018-06-16 14:14 | ECG ---
Date Performed: 06/15/2018 Time Performed: 08:09:50 PTAGE: 68 years EKG: Sinus tachycardia Clinical correlation is recommended Cannoot rule out ischemia Abnormal EC G PREVIOUS TRACING : 06/14/2018 05.14 DOCTOR: Zhao Coreas Interpretating Date/Time 06/16/2018 14:13:34
[2018-06-16] MEDS: traZODone 50 MG Tablet PO SCH (20:59)
--- NOTE | 2018-06-17 08:46 | P.DS ---
Primary care physician: Vik Reeves MD Attending physician on discharge: Sammie Jefferson Anticipated date of discharge: 06/17/18 Brief History from admission: 68-year-old male patient of Dr. Vik Reeves, Dr. Beckford, who presented to his office at the beginning of the month for complaint of chest pain that he has been having off and on with exertion over the past couple of months. Scale was 4/10, more like a pressure sensation associated with some shortness of breath. Normally very active, but has been somewhat limited because of this ongoing intermittent chest discomfort. He underwent echocardiogram at Dr. Beckford's office, which showed an ejection fraction of 56%, some mild mitral regurgitation, mild tricuspid regurgitation. He underwent elective cardiac catheterization today, which showed an ejection fraction of 60%. The left main was 75% ostial lesion, the mid distal LAD 75%, the diagonal 75%. The circ was 95. The RCA 50%. We were consulted to evaluate for coronary artery bypass graft x4. 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 They were unable to find the source of the cause of the pulmonary emboli. Therefore, they kept him on continuous treatment. He has been off his Coumadin for his catheterization today. Also, history of benign prostatic hypertrophy, history of premature atrial contraction, history of a pulmonary nodule. The patient apparently had recent followup CT scan at [facility], which we can obtain. Also, history of depression. DS: Diagnosis - Discharge Diagnosis (1) CAD (coronary artery disease), [place] coronary artery Status: Acute (2) Hx of pulmonary embolus Status: Chronic (3) S/P CABG x 4 Status: Acute (4) Leukocytosis Status: Acute DS: Medications - Discharge Medications Prescriptions: amiodarone 200 mg PO Q12HR 14 Days tab clopidogrel [Plavix] 75 mg PO DAILY #90 tab hydrocodone-acetaminophen 1 tab PO Q3H PRN #40 tab PRN Reason: Pain Scale 1 To 5 DS: Summary Hospital Course: 68-year-old male patient of Dr. Analy Zamudio, who presented to his office at the beginning of the month for complaint of chest pain that he has been having off and on with exertion over the past couple of months. Scale was 4/10, more like a pressure sensation associated with some shortness of breath. Normally very active, but has been somewhat limited because of this ongoing intermittent chest discomfort. He underwent echocardiogram at Dr. Beckford's office, which showed an ejection fraction of 56%, some mild mitral regurgitation, mild tricuspid regurgitation. He underwent elective cardiac catheterization today, which showed an ejection fraction of 60%. The left main was 75% ostial lesion, the mid distal LAD 75%, the diagonal 75%. The circ was 95. The RCA 50%. We were consulted to evaluate for coronary artery bypass graft x4. 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 They were unable to find the source of the cause of the pulmonary emboli. Therefore, they kept him on continuous treatment. He has been off his Coumadin for his catheterization today. Also, history of benign prostatic hypertrophy, history of premature atrial contraction, history of a pulmonary nodule. The patient apparently had recent followup CT scan at [facility], which we can obtain. Also, history of depression. 06/12 no chest pain last pm carotid us : good Fev1 2.30 stable for surgery in am 06/13 SURGICAL PROCEDURE 1. Urgent Off-pump Coronary Artery Bypass Grafting x 4 with Left Internal Mammary Artery (ALCANTAR) to Left Anterior Descending (LAD), reverse saphenous vein graft to obtuse Marginal branch of the left Circumflex artery, reverse saphenous vein graft to the posterior Descending branch of the right Coronary artery, reverse saphenous vein graft to the diagonal 1 branch of the LAD 2. Bilateral leg Endoscopic Vein [place] 3. Intraoperative Vein Mapping. extubated after surgery 3100cc cyrstalloid , 500cc cell saver, 250cc EBL 06/14 doing well up up in chair, transferred to stepdown on ASA, statin , BB amiodarone , plavix 06/15 chest tube removed without difficulty not sleeping well at night has scheduled trazodone and prn Restoril had temp last night , WBC elevated will dc cvc phong e, need pulm toileting OOB ambulate 06/16 Doing well Hemodynamic is stable Likely discharge leena 06/17 D/C Home - Time Spent with Patient Total time spent providing and/or coordinating discharge services: Less than 30 minutes - Quality: VTE Deep Vein Thrombosis/Pulmonary Embolism Present on Admission: No Exam Vital signs: Vital Signs 06/16/18 11:00 06/16/18 12:52 06/16/18 15:00 Temperature 98.7 F 98.6 F Pulse Rate 96 H 100 H 107 H Respiratory Rate 16 18 Blood Pressure 117/71 142/80 H Pulse Oximetry 96 96 06/16/18 16:00 06/16/18 19:00 06/16/18 21:07 Temperature 99.2 F Pulse Rate 107 H 108 H Respiratory Rate 20 Blood Pressure 121/71 Pulse Oximetry 96 98 06/16/18 23:00 06/17/18 00:00 06/17/18 03:00 Temperature 99.4 F 98.7 F Pulse Rate 101 H 96 H Respiratory Rate 20 20 20 Blood Pressure 120/69 125/69 Pulse Oximetry 95 96 06/17/18 07:00 Temperature Pulse Rate 102 H Respiratory Rate Blood Pressure Pulse Oximetry Intake & Output 06/16/18 06/17/18 06/17/18 18:59 06:59 18:59 Intake Total 240 / 240 Balance 240 / 240 Weight 77 kg Intake: Oral 240 / 240 Other: # Voids 3 3 Date of Last Bowel Movement 06/17/18 # Bowel Movements 1 Results Procedures completed during hospitalization: 06/13 SURGICAL PROCEDURE 1. Urgent Off-pump Coronary Artery Bypass Grafting x 4 with Left Internal Mammary Artery (ALCANTAR) to Left Anterior Descending (LAD), reverse saphenous vein graft to obtuse Marginal branch of the left Circumflex artery, reverse saphenous vein graft to the posterior Descending branch of the right Coronary artery, reverse saphenous vein graft to the diagonal 1 branch of the LAD 2. Bilateral leg Endoscopic Vein [place] 3. Intraoperative Vein Mapping. Labs on day of discharge: Labs from last 24 hours 06/16/18 06/16/18 20:57 08:31 POC Glucose 108 99 - Impressions ITS Impressions Carotid Doppler Study 06/11/18 16:08 CONCLUSION: Negative for hemodynamically significant stenosis Lower Extremity Ultrasound 06/12/18 16:08 CONCLUSION: Patent greater saphenous veins bilaterally as above. Venous Doppler Study 06/12/18 16:08 CONCLUSION: The study is negative for bilateral lower extremity deep venous thrombosis. Chest X-Ray 06/16/18 06:00 CONCLUSION: 1. No pneumothorax following left chest tube removal. 2. Persistent small to moderate size left pleural effusion with increased airspace opacity in the left lower lung zone. Discharge Plan - Discharge Disposition Patient Disposition: W/Home Health Service - Discharge Order Discharge Orders: Discharge Order (Routine); Ordered 06/17/18 Ordered By: Sammie Jefferson - Physicians Team Primary Care Provider: Vik Reeves Attending Provider: Elena Beckford - Rxs /Orders / Referrals /Forms Prescriptions: New amiodarone 200 mg Tablet 200 mg PO Q12HR 14 Days RF: 0 clopidogrel [Plavix] 75 mg Tablet 75 mg PO DAILY Qty: 90 RF: 10 docusate sodium [DOK] 100 mg Capsule 100 mg PO BID 30 Days Qty: 60 RF: 0 hydrocodone-acetaminophen 5-325 mg Tablet 1 tab PO Q3H PRN (Reason: Pain Scale 1 To 5) Qty: 40 RF: 0 Continue albuterol sulfate 90 mcg/actuation Aerosol Powdr Breath Activated 2 puff INHALATION Q4H PRN (Reason: Shortness Of Breath) aspirin [Aspir-81] 81 mg Tablet,Delayed Release (Dr/Ec) 81 mg PO DAILY atorvastatin 80 mg Tablet 80 mg PO DAILY esomeprazole magnesium 40 mg Capsule,Delayed Release(Dr/Ec) 40 mg PO DAILY fluticasone-salmeterol [Advair Diskus] 250-50 mcg/dose Blister With Device 1 inh INHALATION BID melatonin 10 mg Tablet 10 mg PO HS PRN (Reason: for sleep) metoprolol tartrate 25 mg Tablet 25 mg PO BID montelukast 10 mg Tablet 10 mg PO QPM nitroglycerin 0.4 mg Tablet, Sublingual 0.4 mg SUBLINGUAL Q5-15M PRN (Reason: Chest Pain) tamsulosin 0.4 mg Capsule 0.4 mg PO DAILY tramadol 50 mg Tablet 50 mg PO Q6H PRN (Reason: Pain) trazodone 50 mg Tablet 50 mg PO DAILY Discontinued warfarin [Coumadin] 5 mg Tablet 5 mg PO DAILY Ambulatory Orders / Order Sets / DME: Walker With Front Wheels (1 each) (Routine) Location: Determined by Patient Ordered By: Karishma Wolf Referrals: Elena Beckford MD [Physician] - See Instructions ( Your appointment has been scheduled for [07/20/18] at [11:30 am] If you cannot make this appointment, please call the office to reschedule ) Karishma Wolf [ADVANCE RN PRACTITIONER] - See Instructions ( Your appointment has been scheduled for [07/03/18] at [10:30 am] If you cannot make this appointment, please call the office to reschedule ) Vik Reeves MD [Primary Care Provider] - See Instructions ( Your appointment has been scheduled for [07/03/18] at [1:45 pm] If you cannot make this appointment, please call the office to reschedule ) - Discharge Instructions Additional Instructions: PREVENA Single Use Negative Wound Therapy System Caregiver Instruction Sheet 1. A Prevena dressing system was applied to the chest incision during surgery , to promote wound healing. It works via a suction device (negative pressure wound therapy) to remove low to moderate levels of exudate (drainage) and infectious materials. We recommend that the device stay in place for up to seven days, from day of surgery. 2. Day of Surgery___06/13/18 Day of Removal ____06/20/18 3. The dressing should only be removed by a health prompt care rn. Please arrange removal of device to coincide with Home Health visit and or with Nursing staff at Rehab 4. If skin reddening or irritation of skin occurs, or excessive drainage, please notify the Cardiovascular Surgeons office at [phone]. 5. Light showering is permissible; however the pump should be disconnected and placed in safe location, where it will not get wet. The dressing should not be exposed to direct spray or submerged in water. No bath tub / shower only. Ensure the end of the tubing attached to the dressing is facing down so that water does not enter the top of the tube. 6. To remove Prevena dressing: press purple button to turn off device / remove the suction. Then disconnect the tubing from the pump. The fixation strips should be stretched away from the skin and the dressing lifted at one corner and peeled back until it has been fully removed. 7. After removal, it is ok to shower daily using liquid dial soap and clean wash cloth, rinse and pat dry, and leave incision open to air dry. For any concerns regarding Prevena dressing, and or wounds, please contact Mel Olguin, patient navigator at [phone] or notify the Cardiovascular Surgeons office at [phone]. Incentive spirometry Q1 hr x 10, while awake, also use acapella device hourly whole awake Sternal Breast Bone Precautions: NO pushing or pulling, ( pt must use sternal pillow to support chest with all activities and with coughing ( takes up to 3 months breast bone to heal ) Daily incision care: ok to shower daily, no tub bath. Wash all incisions with liquid dial soap, clean wash cloth to each site, rinse and pat dry. Observe for any signs of infection, such as drainage which is dark yellow, [place], green or foul smelling. Immediately report to the surgeon any drainage from the chest incision, or legs, and for any abnormal drainage from the chest tube sites. Notify surgeon if any temp >101.5 degrees F. When specialty dressing removed/ or if you do not have one, continue to shower daily as above, then rinse and pat incision dry and paint with betadine daily x 5 days. Allow steri strips to fall off if you have any. Avoid lotions, creams, salves, oils, etc. for the first month Please see attached forms for additional instructions regarding post Open Heart specialty wound vacuum dressings. ANNI or Prevena , Dressing to be removed by Nursing staff on __06/20/18____ F/U appointment: as per [place] instructions: PCP in 2 weeks, CV surgeon 2 weeks, Pierogi Maker 3-4 weeks For any questions regarding incisions/ dressing / meds / post op care or above Symptoms, Monday 8am-5pm Heart & Vascular Surgery Office ( Dr. Jefferson & Dr. Schaeffer), After Hours / Nights (5pm -8am) Weekends and Holidays Please call [facility] ([facility]) Charge Nurse
[2018-06-17] MEDS: Docusate Sodium 100 MG Capsule PO SCH (10:11)
[2018-06-17] MEDS: Metoprolol Tartrate 25 MG Tablet PO SCH ×2 (10:11→10:18)
[2018-06-17] MEDS: Multivitamin/Minerals Therapeutic Tablet PO SCH (10:11)
[2018-06-17] MEDS: Amiodarone 200 MG Tablet PO SCH (10:12)
[2018-06-17] MEDS: Polyethylene Glycol 3350 17 GM Packet PO SCH (10:13)
[2018-06-17] MEDS: Insulin NovoLOG Aspart Correctional Sugar Inj SQ SCH ×2 (10:18→13:20)
== END 2018-06-17 15:00 | disposition home health service (06) ==
LOC: HDOC 10:27 → HDIC 10:32 → HCPC 16:54 → HCVI 06-13 13:39 → HCPC 06-14 11:00
PROVIDERS: ADMIT Thoracic Surgery (Cardiothoracic Vascular Surgery); ATTEND Thoracic Surgery (Cardiothoracic Vascular Surgery)